=== PATIENT | female | born 1995 | race Caucasian/White ===

== ENCOUNTER 2017-11-24 20:41 | Emergency (ER) | payer OTHER, MEDICAID, SELFPAY ==
[2017-11-24 20:46] VITALS: BP 153/88; PULSE 87; RESP 20; TEMP 36.7; O2SAT 100
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
[2017-11-24] MEDS: Ondansetron O.D.T. 4 MG TABEF PO (22:00)
[2017-11-24] MEDS: Ibuprofen 600 MG TAB PO (22:01)
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
[2017-11-24 22:35] VITALS: BP 153/88; PULSE 87; RESP 20; TEMP 36.7; O2SAT 100
== END 2017-11-24 22:37 | disposition home or self-care (01) ==
PROVIDERS: Emergency Provider Nurse Practitioner Family; PCP Pediatrics
DX: G44.309 Post-traumatic headache, unspecified, not intractable (principal); R11.10 Vomiting, unspecified; Z04.1 Encounter for examination and observation following transport accident
CPT/HCPCS: 81025; 99284; 70450; 72125

== ENCOUNTER 2018-08-13 11:32 | Emergency (ER) | payer MEDICAID, SELFPAY ==
[2018-08-13 11:38] VITALS: BP 130/77; PULSE 94; RESP 18; TEMP 37.1; O2SAT 100
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
[2018-08-13] MEDS: Acetaminophen 325 MG TAB 650 MG PO (11:52)
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
== END 2018-08-13 12:26 | disposition home or self-care (01) ==
PROVIDERS: Emergency Provider Emergency Medicine
DX: S60.212A Contusion of left wrist, initial encounter (principal); Y04.0XXA Assault by unarmed brawl or fight, initial encounter; Y99.0 Civilian activity done for income or pay
CPT/HCPCS: 29125; 99283; 73110; 99282; L3908

== ENCOUNTER 2018-08-22 10:12 | Emergency (ER) | payer MEDICAID, SELFPAY ==
[2018-08-22 10:13] VITALS: BP 132/83; PULSE 102; RESP 20; TEMP 36.7; O2SAT 98
--- NOTE | 2018-08-22 10:40 | ED.GENADUL_ITS ---
Discharge Plan Disposition Patient Disposition: HOME Condition: Stable Discharge Details Chief Complaint: RespSymp Clinical Impression: Infection, respiratory tract, Asthma exacerbation Primary Care Provider: None,None ED Provider: Estuardo Moctezuma Home Meds and New Rx's Prescriptions: New doxycycline hyclate 100 mg capsule 100 mg PO BID Qty: 13 RF: 0 prednisone 50 mg tablet 50 mg PO DAILY Qty: 3 RF: 0 No Action ibuprofen [Ibuprofen IB] 200 mg Tablet 800 mg PO PRN PRNRF: 0 Discharge Instructions Instructions: Asthma (ED), Upper Respiratory Infection (ED) Additional Instructions: During illness please stay well-hydrated and get plenty of rest. It is recommended that you follow-up with primary care provider in approximately 1 to 2 weeks or sooner if needed. If you have any significant worsening of symptoms feel free to return to the emergency department for reassessment. Take antibiotic as prescribed and until fully complete. Stand Alone Forms: Work Release Referrals: [facility] [Provider Group] (Follow-up with primary care pro vider in the next 1 to 2 weeks for reassessment) Discharge Data Discharge Date/Time-TO BE ENTERED AT DEPARTURE: 08/22/18 11:38 Medical Decision Making Patient presenting to the emergency department for chief complaint of cough, cold, chest congestion. Patient states 5 days ago she had what she thought was a viral infection with nasal congestion, earache, cough. This was similar in nature to what others in the household had been experiencing. Fever resolved after couple days but over the last 24 hours she has noted significant dyspnea on exertion, wet productive cough throughout the day, chest congestion, and feeling worse. Physical exam shows rhonchi throughout all lung chowdhury, wet cough, unremarkable HEENT exam except for audible nasal congestion. There is concern for possible infectious etiology so plan to do chest x-ray for evaluation of pneumonia, give DuoNeb. Patient does state history of asthma as a child that was seasonal in nature. Review of radiological imaging shows normal chest x-ray. Patient reassessed and does have improvement of lung sounds which sound more like diffuse wheezing throughout all lung chowdhury. Patient still has cough noted on exam. Given worsening of symptoms over the past 5 days, chest tightness and discomfort plan to treat patient with doxycycline. Also given patient's history of asthma and diffuse wheezing with chest tightness plan to give albuterol inhaler along with prednisone burst. Close return precautions were discussed. Patient states that she is already in process with [facility] to establish primary care which she was informed that she should follow-up with them preferably next week if not 1 to 2 weeks. After discussion of diagnosis and plan of care patient has no further needs, questions, or concerns and states clear understanding to return to the emergency department for any worsening symptoms. HPI General Mode of arrival: ambulatory . Date/Time Provider Initiated Documentation: 08/22/18 10:13 . Limitations to Documentation: no limitations . Information obtained by: patient, family and RN notes reviewed . History of Present Illness 23 year old F presents to the emergency department with the chief complaint of Cough, chest congestion, chest pressure, described as moderate, with intensity rated at 6. Quality is described as other (pressure), and is localized to the chest. Patient started experiencing this day(s) (5) and it has been constant. No relieving factors improve symptom(s), Movement worsens symptoms (And activity) . Patient did receive the following treatments prior to arrival, none Related Data Home Medications Medication Instructions Recorded Confirmed ibuprofen [Ibuprofen IB] 800 mg PO PRN PRN 08/13/18 08/22/18 doxycycline hyclate 100 mg PO BID #13 cap 08/22/18 prednisone 50 mg PO DAILY #3 tab 08/22/18 Previous Rx's Medication Instructions Recorded doxycycline hyclate 100 mg PO BID #13 cap 08/22/18 prednisone 50 mg PO DAILY #3 tab 08/22/18 Allergies Allergy/AdvReac Type Severity Reaction Status Date / Time Sulfa (Sulfonamide Allergy Intermediate Hives Unverified 08/22/18 10:21 Antibiotics) lavender (Lavandula Allergy Mild Hives Unverified 08/22/18 10:21 angustifolia) General Stated Complaint: RespSymp GARCIA: 3 Review of Systems Constitutional Reports body ache(s), Reports chills, Reports fever(s), Denies headache(s) and Reports malaise Eyes Denies eye discharge ENT Reports as per HPI, Denies ear discharge, Reports otalgia, Denies headache(s), Reports nasal congestion, Denies neck pain, Reports sinus pressure, Denies sore throat and Denies throat swelling Cardiovascular Reports chest pain and Reports dyspnea on exertion Respiratory Reports chest congestion, Reports cough and Reports dyspnea on exertion Musculoskeletal Denies joint swelling and Denies neck pain Integumentary/Breasts Denies rash Neurologic Denies headache(s) Allergic/Immunologic Denies throat swelling [facility] Medical History Asthma Attention deficit hyperactivity disorder Bacterial urinary infection Migraine with aura Surgical History Tonsillectomy and adenoidectomy Family History Mother Urologic disease Other Diabetes Hyperlipidemia Personal history of malignant neoplasm Social History Smoking/Tobacco Use Status: Never Alcohol Intake: current Alcohol Intake frequency: a few times a month Drug use: Never Substance use type: does not use Do you feel safe at home: Yes Do you feel safe in your relationship?: Yes Exam Const General: cooperative, comfortable and no acute distress Orientation: alert and awake HENMT Head: normal to inspection, normocephalic and atraumatic Ears: hearing grossly normal bilaterally and TM's normal bilaterally General nose exam: external nose normal Face and sinus: normal facial exam, no erythema and no sinus tenderness Mouth: oral mucosae normal, no drooling, no muffled voice and no trismus Throat: posterior oropharynx normal, tonsils normal and uvula midline Neck Neck: normal visual inspection, full ROM, no lymphadenopathy, no meningeal signs, trachea midline and supple Resp Effort & Inspection: normal respiratory effort, able to speak in complete sentences and cough Quality of cough: actively coughing Auscultation: clear to auscultation bilaterally Cardio Rate: regular rate Rhythm: regular rhythm Heart Sounds: S1 normal, S2 normal, normal S1 and S2, no click, no gallops, no murmurs and no rubs Skin General skin exam: no rashes or lesions noted and dry skin (warm) Course Vital Signs Temperature 36.7 C 08/22/18 10:13 Pulse 102 H 08/22/18 10:13 Respiratory Rate 20 08/22/18 10:13 Blood Pressure 132/83 08/22/18 10:13 Pulse Oximetry 98 08/22/18 10:13 Temperature 36.7 C 08/22/18 10:13 Temperature Source Skin 08/22/18 10:13 Pulse 102 H 08/22/18 10:13 Respiratory Rate 20 08/22/18 10:13 Respiratory Effort Non-Labored 08/22/18 10:26 Respiratory Depth Normal 08/22/18 10:23 Blood Pressure 132/83 08/22/18 10:13 Blood Pressure Position Sitting 08/22/18 10:13 Pulse Oximetry 98 08/22/18 10:13 Oxygen Delivery Method Room Air 08/22/18 10:13 Oxygen Flow Rate 0 08/22/18 10:13
[2018-08-22 10:41] VITALS: PULSE 102; RESP 20; RESP 4; RESP 7; O2SAT 98
[2018-08-22] MEDS: Albuterol/Ipratropium 3 ML UPD VIAL UPD (10:41)
--- NOTE | 2018-08-22 10:53 | DI.RAD_ITS ---
SYMPTOM/DIAGNOSIS: COUGH, FEVER PA AND LATERAL CHEST: The cardiac and mediastinal contours have a normal appearance. The lungs are well inflated and clear. No infiltrate or effusion seen. IMPRESSION: Negative chest x-ray
[2018-08-22] MEDS: Inhaler, Assist Device 1 EACH MC (11:04)
[2018-08-22] MEDS: Albuterol HFA 8 GM 60 PUFF INH IH (11:05)
[2018-08-22] MEDS: predniSONE 20 MG TAB 40 MG PO (11:16)
[2018-08-22] MEDS: Doxycycline Hyclate 100 MG CAP PO (11:16)
== END 2018-08-22 11:38 | disposition home or self-care (01) ==
PROVIDERS: Emergency Provider Nurse Practitioner Family
DX: J45.901 Unspecified asthma with (acute) exacerbation (principal); J06.9 Acute upper respiratory infection, unspecified
CPT/HCPCS: 81025; 94640; 99283; 71046; J7512; J7620

== ENCOUNTER 2018-12-22 18:30 | Emergency (ER) | payer MEDICAID, SELFPAY ==
[2018-12-22 18:33] VITALS: BP 139/85; PULSE 110; RESP 22; TEMP 36.7; O2SAT 100
--- NOTE | 2018-12-22 18:39 | ED.GENADUL_ITS ---
Discharge Plan Disposition Patient Disposition: HOME Condition: Fair Discharge Details Chief Complaint: RespSymp Clinical Impression: Asthma exacerbation Primary Care Provider: None,None ED Provider: Linda Griffin Home Meds and New Rx's Prescriptions: New prednisone 20 mg tablet 40 mg PO DAILY Qty: 6 RF: 0 Continued ibuprofen [Ibuprofen IB] 200 mg Tablet 800 mg PO PRN PRNRF: 0 albuterol sulfate 90 mcg/actuation Hfa Aerosol Inhaler 2 puff INHALATION DIRECTED PRNRF: 0 Discharge Instructions Instructions: Prednisone (By mouth), Asthma (ED) Additional Instructions: Encourage hydration. Please continue with your inhaler as previously prescribed. Please take the prednisone as prescribed. You were given your dosing for today here, next dose will be tomorrow evening. If you develop fever/chills, cough, increased difficulty breathing, shortness of breath or the new/worsening symptoms please seek care urgently once again. Otherwise, please follow-up with primary care next week for reevaluation. Referrals: Cori Flannery MD [ [facility] STAFF PHYSICIAN] - Discharge Data Discharge Date/Time-TO BE ENTERED AT DEPARTURE: 12/22/18 19:25 Medical Decision Making Patient is a 23-year-old female presents today with chief complaint of asthma exacerbation. She reports that her symptoms began this afternoon after going on a cold. States that she has been having extreme dyspnea. Reports she was here 1 year ago with similar symptoms. States that since the onset of her symptoms this afternoon, her dyspnea and wheezing have persisted and increased in severity. Worse when outside, worse with exertion. She seems well aware of offending agents that can exacerbate her underlying asthma. Denies any symptoms of URI or recent infection. No recent travel. No hormone use, non-smoker, no personal or famililial history of clot Is concerned that her inhaler has been unsuccessful at alleviating her symptoms and that she has been using it more frequently than prescribed. On exam, patient appears comfortable, speaking in full sentences but slightly tachypnic. She was not noted to be wheezing by myself but nursing staff who saw her ambulate in and listen to her initially noted her to be diffusely wheezy and working to breathe. Exam is otherwise benign. Normal cardiac exam. No LE edema, negative Homans sign bilaterally. Patient was given a nebulizer and feels much improved. Lungs remain clear. Patient I discussed treatment options. She is describing quite severe symptoms, plan to treat with prednisone. History is not consistent with PE or cardiac etiology. Sounds to have been classically set off by sudden exposure to cold as her symptoms have historically. She was advised to f/u with PCP next week. SHe was given strict return precautions. All of her questions and cocnerns were addressed, she is in agreement with this plan. Given first dose here, feels improved at the time of discharge. HPI General Mode of arrival: ambulatory . Date/Time Provider Initiated Documentation: 12/22/18 18:39 . Limitations to Documentation: no limitations . Information obtained by: patient, family (friend) and RN notes reviewed . HPI Narrative: Patient is a 23-year-old female with history of asthma presenting today with chief complaint of asthma exacerbation. She reports that often her asthma is made worse when going from a warm to cold situation. She reports that she was going in and out of doors this afternoon when the symptoms suddenly came on. States that she feels like she has similarly historically with asthma exacerbation. She feels tight, has been having shortness of breath. Reports this afternoon she began having mild cough but this is after the asthma. Denies having a cough prior to asthma exacerbation. Denies any fevers or chills. De nies any recent travel. Reports that she has used her inhaler with no improvement. Related Data Home Medications Medication Instructions Recorded Confirmed ibuprofen [Ibuprofen IB] 800 mg PO PRN PRN 08/13/18 12/22/18 albuterol sulfate 2 puff INHALATION DIRECTED PRN 12/22/18 12/22/18 prednisone 40 mg PO DAILY #6 tab 12/22/18 Previous Rx's Medication Instructions Recorded prednisone 40 mg PO DAILY #6 tab 12/22/18 Allergies Allergy/AdvReac Type Severity Reaction Status Date / Time doxycycline Allergy Intermediate Hives Unverified 12/22/18 18:36 Sulfa (Sulfonamide Allergy Intermediate Hives Unverified 12/22/18 18:35 Antibiotics) lavender (Lavandula Allergy Mild Hives Unverified 12/22/18 18:35 angustifolia) General Stated Complaint: RespSymp GARCIA: 3 Review of Systems Constitutional Constitutional: Reports as per HPI, Denies chills, Denies fever(s) and Denies headache(s) Eyes Eyes: Reports as per HPI, Denies eye discharge and Denies irritation ENT Ears, Nose, Mouth, and Throat: Reports as per HPI and Denies headache(s) Cardiovascular Cardiovascular: Reports as per HPI, Denies chest pain, Denies lightheadedness, Denies radiating jaw, neck or arm pain, Denies palpitations and Reports dyspnea Respiratory Respiratory: Reports as per HPI, Denies chest congestion, Reports cough, Denies hemoptysis, Denies pain on inspiration, Denies pain with cough, Reports dyspnea and Reports wheezing Gastrointestinal Gastrointestinal: Reports as per HPI, Denies abdominal pain, Denies change in bowel habits, Denies nausea and Denies vomiting Integumentary/Breasts Skin/Breast: Reports as per HPI and Denies rash Neurologic Neurologic: Reports as per HPI and Denies headache(s) Endocrine Endocrine: Denies palpitations Allergic/Immunologic Allergic/Immunologic: Reports wheezing [facility] Medical History Asthma Dx age 14yrs rare episodes uses rescue inhaler PRN Attention deficit hyperactivity disorder Bacterial urinary infection Migraine with aura Dx age 13yrs recent validation with aura [facility] Surgical History Tonsillectomy and adenoidectomy 08/11 for sleep apnea Social History Smoking/Tobacco Use Status: Never Alcohol Intake: current Alcohol Intake frequency: a few times a month Drug use: Never Substance use type: does not use Do you feel safe at home: Yes Do you feel safe in your relationship?: Yes Exam Const General: cooperative, healthy appearing, comfortable, no acute distress, well developed and well groomed Nutritional Appearance: well nourished and overweight Orientation: alert and awake [facility] Head: normal to inspection, normocephalic and atraumatic Ears: hearing grossly normal bilaterally, external ears normal and TM's normal bilaterally General nose exam: external nose normal and nares normal Face and sinus: normal facial exam, sinuses nontender and face symmetric Mouth: oral mucosae normal, lip normal, tongue normal, oropharynx normal and moist mucous membranes Teeth and gingiva: dentition normal Throat: posterior oropharynx normal, tonsils normal and uvula midline Eyes General: appearance normal, both eyes and all related structures Neck Neck: normal visual inspection, full ROM, no lymphadenopathy and no meningeal signs Resp Effort & Inspection: normal respiratory effort, able to speak in complete sentences and no respiratory distress Auscultation: clear to auscultation bilaterally, no rales, no rhonchi and no wheezes Cardio Rate: regular rate Rhythm: regular rhythm Heart Sounds: S1 normal and S2 normal Skin General skin exam: no rashes or lesions noted Neuro General: alert and awake Cognition: normal cognition Speech: speech normal Gait: normal gait Psych Appearance: grossly normal and well kempt Mental Status: mental status grossly normal Speech and Movement: speech and movement normal Course Vital Signs Vital signs: Vital Signs Temperature 36.7 C 12/22/18 18:33 Pulse 110 H 12/22/18 18:33 Respiratory Rate 22 12/22/18 18:33 Blood Pressure 139/85 12/22/18 18:33 Pulse Oximetry 100 12/22/18 18:33 Temperature 36.7 C 12/22/18 18:33 Temperature Source Skin 12/22/18 18:33 Pulse 110 H 12/22/18 18:33 Respiratory Rate 22 12/22/18 18:33 Respiratory Effort 12/22/18 18:38 Respiratory Depth Normal 12/22/18 18:38 Blood Pressure 139/85 12/22/18 18:33 Blood Pressure Position Sitting 12/22/18 18:33 Pulse Oximetry 100 12/22/18 18:33 Oxygen Delivery Method Room Air 12/22/18 18:33 Oxygen Flow Rate 0 12/22/18 18:33 Pain Level 5 12/22/18 18:33
--- NOTE | 2018-12-22 18:56 | NUR.NOTE ---
albuterol neb tx admin as ordered. Nursing Note:
[2018-12-22 19:05] VITALS: PULSE 111; RESP 22; RESP 4; O2SAT 97
[2018-12-22] MEDS: Albuterol 2.5 MG/3 ML INH SOLN VIAL UPD (19:05)
[2018-12-22 19:17] VITALS: PULSE 92; RESP 1; RESP 18; O2SAT 98
[2018-12-22] MEDS: predniSONE 20 MG TAB 40 MG PO (19:22)
[2018-12-22 19:25] VITALS: BP 124/78; PULSE 92; RESP 17; TEMP 36.7; O2SAT 98
== END 2018-12-22 19:25 | disposition home or self-care (01) ==
PROVIDERS: Emergency Provider Physician Assistant
DX: J45.901 Unspecified asthma with (acute) exacerbation (principal)
CPT/HCPCS: 94640; 99283; J7512; J7613

== ENCOUNTER 2018-12-31 15:35 | Emergency (ER) | payer MEDICAID, SELFPAY ==
[2018-12-31 15:39] VITALS: BP 138/81; PULSE 96; RESP 18; TEMP 36.1; O2SAT 98
--- NOTE | 2018-12-31 15:54 | ED.GENADUL_ITS ---
Discharge Plan Disposition Patient Disposition: HOME Discharge Details Chief Complaint: Sorethroat Clinical Impression: Pharyngitis Primary Care Provider: None,None ED Provider: Jeffery Mayorga Home Meds and New Rx's Prescriptions: Continued ibuprofen [Ibuprofen IB] 200 mg Tablet 800 mg PO PRN PRNRF: 0 albuterol sulfate 90 mcg/actuation Hfa Aerosol Inhaler 2 puff INHALATION DIRECTED PRNRF: 0 Discharge Instructions Instructions: Pharyngitis (ED) Additional Instructions: Please drink plenty of fluid and allow for plenty of rest. Please contact your primary care physician to arrange follow-up. Return to the ER for any worsening or new concerning symptoms. Stand Alone Forms: Work Release Discharge Data Discharge Date/Time-TO BE ENTERED AT DEPARTURE: 12/31/18 17:19 Medical Decision Making <JOHN Brown - Last Filed: 01/02/19 14:38> Patient presents for 4 days of sore throat with no associated voice change or trismus. She does report associated headache and vomited x1 without associated abdominal pain. Patient denies measured fevers or chills. Exposed to someone at work recently was diagnosed with strep throat. Patient was concerned with the possibility of strep throat. Patient also reports associated fatigue does have a history of mono and this does feel somewhat similar. Patient has no associated respiratory symptoms. Patient's rapid strep testing was negative at the bedside. Full throat culture pending. Will test patient for mono. On exam patient does have very dry mucous membranes and does appear dehydrated. IV fluid ordered mono test pending <Jeffery Mayorga MD - Last Filed: 12/31/18 19:03> Patient signed out by JOHN Mueller with plan to follow-up on mono testing and CBC. Please see JOHN Mueller's documentation regarding initial ED presentation and course. Rapid strep testing was negative. [place] negative. CBC nondiagnostic. I reassessed the patient. Patient received IV fluid bolus. I offered Tylenol or ibuprofen for sore throat and she declined. Posterior oropharynx was noted to have mild erythema with no exudate or swelling. No trismus. Uvula midline. Voice normal. Suspect viral pharyngitis. Usual customary discharge instructions were provided. Patient was encouraged to follow-up with her primary care physician and return immediately should have any worsening or new concerning symptoms. HPI <JOHN Brown - Last Filed: 01/02/19 14:38> General Date/Time Provider Initiated Documentation: 12/31/18 15:45 . HPI Narrative: 23-year-old patient presents for complaints of sore throat for the last 4 days. Patient reports one episode of vomiting yesterday. Patient reports decreased appetite she has been taking fluids by mouth. She does report mild decrease in her urination. Patient reports painful swallowing worse on the right. Mild associated neck discomfort. Patient denies nasal congestion or ear pain. Denies significant cough, difficulty with shortness breath or wheezing. Patient denies abdominal pain or bowel changes. 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 Patient is concerned for similar. She also does have a history of mono. Patient does report that yesterday she was so fatigued that she fell asleep at 2:00 in the afternoon for approximately 3 hours which is very atypical for her. Patient does report the somewhat reminds her of when she had mono in the past. Denies voice change or trismus Related Data Home Medications Medication Instructions Recorded Confirmed ibuprofen [Ibuprofen IB] 800 mg PO PRN PRN 08/13/18 12/31/18 albuterol sulfate 2 puff INHALATION DIRECTED PRN 12/22/18 12/31/18 Allergies Allergy/AdvReac Type Severity Reaction Status Date / Time doxycycline Allergy Intermediate Hives Unverified 12/31/18 15:41 Sulfa (Sulfonamide Allergy Intermediate Hives Unverified 12/31/18 15:41 Antibiotics) lavender (Lavandula Allergy Mild Hives Unverified 12/31/18 15:41 angustifolia) General Stated Complaint: Sorethroat GARCIA: 4 Review of Systems <JOHN Brown - Last Filed: 01/02/19 14:38> All systems reviewed & are unremarkable except as noted in HPI and below Constitutional Constitutional: Denies chills, Reports fatigue, Denies fever(s) and Reports headache(s) ENT Ears, Nose, Mouth, and Throat: Denies otalgia, Reports headache(s), Denies nasal congestion, Denies sinus pain, Denies sinus pressure, Reports sore throat and Denies throat swelling Respiratory Respiratory: Reports cough Neurologic Neurologic: Reports headache(s) Endocrine Endocrine: Reports fatigue Allergic/Immunologic Allergic/Immunologic: Denies throat swelling PFSH <JOHN Brown - Last Filed: 01/02/19 14:38> Medical History Asthma Dx age 14yrs rare episodes uses rescue inhaler PRN Attention deficit hyperactivity disorder Bacterial urinary infection Migraine with aura Dx age 13yrs recent [place] with [place] [facility] History Tonsillectomy and adenoidectomy 08/11 for sleep apnea Social History Smoking/Tobacco Use Status: Never Alcohol Intake: current Alcohol Intake frequency: a few times a month Drug use: Never Substance use type: does not use Do you feel safe at home: Yes Do you feel safe in your relationship?: Yes Exam <JOHN Brown - Last Filed: 01/02/19 14:38> Narrative Exam Narrative: CONST: Healthy appearing patient, in no acute distress. Well hydrated. Alert and alert. HENMT: Head nomocephalic, normal to inspection. Atraumatic. Hearing grossly normal. TM appearance is normal bilaterally. No erythema or bulging. Patient with pharyngeal erythema without exudates or tonsillar swelling. Uvula is midline without edema or bogginess EYES: General normal appearance. Alignment normal. Eyelids normal. Conjunctiva normal. NECK: Normal visual inspection. FROM. Trachea midline. No Midline tenderness. Cervical lymphadenopathy present posteriorly CHEST: Normal insepection of the chest. RESP: Normal respiratory effort. Speaking full sentences. No cough. No audible wheezing. No retractions. Breath sounds full and equal bilaterally. No associated rhonchi, rales or wheezing CARDIO: No JVD. Regular rate and rhythm, no murmurs rubs or gallops Course <JOHN Brown - Last Filed: 01/02/19 14:38> Vital Signs Vital signs: Vital Signs Temperature 36.1 C L 12/31/18 15:39 Pulse 96 H 12/31/18 15:39 Respiratory Rate 18 12/31/18 15:39 Blood Pressure 138/81 12/31/18 15:39 Pulse Oximetry 98 12/31/18 15:39 Temperature 36.1 C L 12/31/18 15:39 Temperature Source Temporal Artery Scan 12/31/18 15:39 Pulse 96 H 12/31/18 15:39 Respiratory Rate 18 12/31/18 15:39 Respiratory Effort Non-Labored 12/31/18 15:39 Blood Pressure 138/81 12/31/18 15:39 Pulse Oximetry 98 12/31/18 15:39 Oxygen Delivery Method Room Air 12/31/18 15:39 Oxygen Flow Rate 0 12/31/18 15:39 Pain Level 5 12/31/18 15:39 Lab/Test Results Lab/Test Results: POC Strep Test-ROSY(Rapid) Start: 12/31/18 15:50 Freq: .Rapid Strep Test Status: Active Protocol: Document 12/31/18 15:50 AM (Rec: 12/31/18 15:50 AM [id number]) Strep test-ROSY(Rapid)-POC POC-Strep test-ROSY (Rapid) Negative POC-Strep test-ROSY (Rapid) Negative Sign Out <JOHN Brown - Last Filed: 01/02/19 14:38> Sign Out Data: Sign Out Comment: Pending rehydration with IV fluid and mono testing. Last updated by Jaleesa Mueller PA at 12/31/18 16:22
[2018-12-31] MEDS: Normal Saline 1,000 ML 1000 ML IV (16:05)
[2018-12-31 16:29] LABS: Abs Immature Grans 0.04 k/cumm (0.0-0.09); Absolute Basophil Count 0.01 k/cumm (0.0-0.2); Absolute Eosinophil Count 0.04 k/cumm (0.0-0.7); Absolute Lymphocyte Count 2.73 k/cumm (1.2-3.4); Absolute Monocyte Count 0.72 k/cumm (0.11-0.7); Absolute Neutrophil Count 7.08 k/cumm (1.2-6.7); Basophils % 0.1; Eosinophils % 0.4; HCT 41.5 % (36.0-46.0); HGB 13.1 g/dL (12.0-15.5); Immature Grans % 0.4; Lymphocytes % 25.7; Mean Corp. HGB Concentration 31.6 g/dL (32.0-36.0); Mean Corpuscular Hemoglobin 26.9 pg (27.0-33.0); Mean Corpuscular Volume 85.2 fL (80-95); Mean Platelet Volume 10.4 fL (8.0-11.0); Monocytes % 6.8; Neutrophils % 66.6; Platelet Count 361 x1000/uL (130-400); RBC 4.87 m/cumm (4.00-5.20); RBC Distribution Width 13.7 % (11.7-14.6); White Blood Cell Count 10.62 k/cumm (4.4-10.8)
[2018-12-31 16:35] LABS: Mono Screening Negative (Negative)
== END 2018-12-31 17:19 | disposition home or self-care (01) ==
PROVIDERS: Physician Assistant; Emergency Provider Student in an Organized Health Care Education/Training Program
DX: J02.9 Acute pharyngitis, unspecified (principal); R51 Headache; R11.10 Vomiting, unspecified
CPT/HCPCS: 96360; 99283; 85025; 86308

== ENCOUNTER 2019-07-25 14:25 | Emergency (ER) | payer SELFPAY ==
[2019-07-25 14:32] VITALS: BP 140/87; PULSE 115; RESP 20; TEMP 37.6; O2SAT 100
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
[2019-07-25] MEDS: Acetaminophen 500 MG TAB 1000 MG PO (15:15)
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
[2019-07-25 15:43] VITALS: BP 144/78; PULSE 100; RESP 17; O2SAT 97
[2019-07-25 16:08] VITALS: PULSE 110; O2SAT 99
[2019-07-25 16:22] VITALS: BP 141/97; PULSE 102; RESP 18; TEMP 37.1; O2SAT 97
== END 2019-07-25 16:32 | disposition home or self-care (01) ==
PROVIDERS: Emergency Provider Physician Assistant
DX: S00.81XA Abrasion of other part of head, initial encounter (principal); S09.90XA Unspecified injury of head, initial encounter; S20.219A Contusion of unspecified front wall of thorax, initial encounter; V47.5XXA Car driver injured in collision with fixed or stationary object in traffic accident, initial encounter
CPT/HCPCS: 81025; 99284; 70450; 70486; 71046; 72125

== ENCOUNTER 2020-11-18 15:03 | Outpatient (REF) | payer SELFPAY ==
[2020-11-20 19:54] LABS: COVID-19 RT-PCR UVMMC Result Negative (Negative)
== END 2020-11-18 15:04 | disposition home or self-care (01) ==
LOC: LBN 15:03
PROVIDERS: Visit Provider Nurse Practitioner Family
DX: Z20.822 Contact with and (suspected) exposure to COVID-19 (principal); J06.9 Acute upper respiratory infection, unspecified
CPT/HCPCS: U0003

== ENCOUNTER 2021-05-13 20:04 | Emergency (ER) | payer BC, SELFPAY ==
--- NOTE | 2021-05-13 20:00 | RT.EKG_ITS ---
APPROVED REPORT Exam: Resting ECG Reason for Exam: Seizure versus syncope Patient Location: E HR:72 bpm ECG Measurements Heart Rate [address] 158 P 16 QRSd 89 QRS 43 QT 410 T 20 QTc 449 Conclusion Sinus rhythm...normal P axis, V-rate 60- 99 sinus rhythm, normal axis, normal intervals, non ischemic; no evidence of WPW, Brugada, prolonged QT or HOCM
[2021-05-13 20:07] VITALS: BP 154/92; PULSE 108; PULSE 110; RESP 18; TEMP 36.6; O2SAT 100
[2021-05-13 20:11] VITALS: RESP 18
--- NOTE | 2021-05-13 20:30 | DI.CT_ITS ---
Exam(s) CT HEAD WO EXAM: CT HEAD WO CLINICAL HISTORY: Seizure versus syncope. TECHNIQUE: Imaging Protocol: Axial computed tomography images with coronal and sagittal reformatted images were created and reviewed COMPARISON: CT CT HEAD CERV SPINE FACIAL WO from 07/25/2019 FINDINGS: The ventricular system is normal in appearance. No evidence of acute intracranial hemorrhage, mass effect, or midline shift. The orbital structures are unremarkable. The temporal bone structures appear intact. Calvarium: Normal. Visualized Paranasal sinuses/Mastoids: Clear. IMPRESSION: Normal cranial CT. RADIATION DOSE DELIVERED: 745.91mGy.cm Total DLP 745.91mGy.cm Total DLP !Error CTDIvol DATA REPOSITORY: All CT scans at this facility are submitted to the National Radiology Data Registry (NRDR) Dose Index Registry (DIR) with the [employer] ([employer]). RADIATION OPTIMIZATION: All CT scans at this facility use at least one of these dose optimization te chniques: automated exposure control; mA and/or kV adjustment per patient size (includes targeted exa ms where dose is matched to clinical indication); or iterative reconstruction.
--- NOTE | 2021-05-13 20:31 | DI.RAD_ITS ---
Exam(s) XR CHEST 2V PA LATERAL EXAM: XR CHEST 2V PA LATERAL CLINICAL HISTORY: Seizure versus syncope TECHNIQUE: 2D digital imaging was performed. COMPARISON: CR XR CHEST 2V PA LATERAL from 07/25/2019 FINDINGS: The heart is not enlarged. The lungs are clear and well expanded. No pleural effusion seen. Mediastin al contours appear intact. IMPRESSION: Normal chest. RADIATION DOSE DELIVERED: Total DLP
[2021-05-13] MEDS: Normal Saline 1,000 ML 1000 ML IV (20:48)
[2021-05-13 20:53] LABS: Abs Immature Grans 0.03 10^3/uL (0.0-0.06); Absolute Basophil Count 0.02 10^3/uL (0.0-0.2); Absolute Eosinophil Count 0.02 10^3/uL (0.0-0.7); Absolute Lymphocyte Count 2.77 10^3/uL (1.2-3.4); Basophils % 0.2; Eosinophils % 0.2; HCT 41.4 % (36.0-46.0); HGB 13.1 g/dL (11.2-15.7); Immature Grans % 0.2; Lymphocytes % 22.6; MCH 27.6 pg (27.0-33.0); MCHC 31.6 % (32.0-36.0); MCV 87.2 fL (80-95); MPV 10.9 fL (8.0-11.0); Monocytes % 5.7; Neutrophils % 71.1; Nucleated RBC 0 %; Platelet Count 404 10^3/uL (130-400); RBC 4.75 10^6/uL (3.93-5.22); RDW 12.9 % (11.7-14.6); WBC 12.24 10^3/uL (4.4-10.8)
--- NOTE | 2021-05-13 20:56 | W.ED.GENAD ---
Discharge Plan Disposition Patient Disposition: HOME Condition: Improving Discharge Details Clinical Impression: Syncope, Seizure-like activity, Migraine Primary Care Provider: None,None ED Provider: Lincoln Espinoza Home Meds and New Rx's Prescriptions: Continued ibuprofen [Ibuprofen IB] 200 mg Tablet 800 mg PO PRN PRN0RF Rx Instructions: for migraines - frequent migraines recently albuterol sulfate 90 mcg/actuation Hfa Aerosol Inhaler 2 puff INHALATION DIRECTED PRN0RF Discharge Instructions Instructions: General Headache (ED), Syncope (ED), New-Onset Seizure in Adults (ED) Additional Instructions: During your ER visit this evening there was no obvious emergent process identified. It is unclear as to what exactly caused your syncopal episode whether this could be related to your complex migraine or if this was actually seizure activity. I personally spoke with Dr. Urrutia, neurology, at [facility]. She recommends outpatient neurology follow-up, additional testing and work-up to determine the etiology of your symptoms. I have placed you on the care management list to help expedite outpatient neurology follow-up whether that be through our facility or [facility]. Please watch for new or worsening symptoms and return to the ER for any concerns. As we discussed, I recommend that you do not drive a car, operate machinery, or put yourself at higher risk for injury if you were to have a repeat seizure, until you have been evaluated and cleared to return to normal activity by neurology. Referrals: Lindsay Santoyo MD [ [facility] STAFF PHYSICIAN] - Medical Decision Making This is a 25-year-old female who reports a history of complex-atypical migraines, in the need of neurology follow-up, family history of seizure-like activity, presenting to the ER this evening for concern that she may have had a seizure. Clinically she appears well, nontoxic, neurologically intact. Patient reports that she did have a which she would describe as a normal earlier today, took Tylenol and otherwise felt well. Difficult to determine whether this could have been seizure-like activity versus potential syncopal episode secondary to a multitude of etiologies. Plan is to obtain IV access, give IV fluids, obtain cardiac work-up and a CT of her brain. Patient denies any chest pain, shortness of breath, pain or swelling her legs. Based upon her presentation extremely low suspicion for ACS, PE, etc. Laboratory values reveal mild nonspecific leukocytosis of 12.24. Potassium 3.3, electrolytes and chemistries otherwise unremarkable. Troponin is less than 50. TSH 1.59. Urinalysis reveals no indication of infection. Tox screen is negative. Alcohol is less than 3. CT imaging of her brain as well as a chest x-ray were both read unremarkable per radiology. Upon reevaluation patient is resting comfortably, using her cell phone without difficulty. Heart rate in the 70s, she remains afebrile, O2 sat 100% on room air, blood pressure 122/73. It is still unclear as to what exactly prompted her episode this evening. Given the overall vagueness of her presentation, symptoms, past medical history as well as the history of her family, I have pushed the CT imaging to [facility] and requested a neurology consultation. I was able to speak with Dr. Urrutia, neurology, who felt as though the patient's work-up in the ER this evening was reassuring and that she could be discharged from our ER without initiating any medications. She recommends outpatient neurology work-up to determine etiology of her symptoms and if medication is indicated. This conversation was then relayed with the patient. Patient has no additional questions or concerns and would be happy to follow-up with neurology as an outpatient. We discussed that at this time only a single troponin has been drawn and I did explain to her the limitations of a single troponin versus observation and obtaining a delta troponin. Patient understands this and would prefer to be discharged. Strict discharge and return precautions were provided. I have placed her on our care management list to help expedite outpatient neurology follow-up whether that is local here at our facility with Dr. Santoyo or through [facility]. I will give the patient the information for Dr. Santoyo as well. Upon discharge patient reports feeling well, at baseline, and she remains neurologically intact. This documentation was generated using [employer] dictation system, please disregard any oddities of phrase or misspellings. Medical Records Medical records reviewed: Yes I reviewed the patient's medical records. Imaging Data Radiologic Study: Attestation: I personally reviewed and interpreted this imaging study as follows: Imaging: CT Scan Radiologist's impression: PROCEDURE INFORMATION: Exam: CT Head Without Contrast Exam date and time: 05/13/2021 20:34 Age: 25 years old Clinical indication: Other: Seizure vs syncope TECHNIQUE: Imaging protocol: Computed tomography of the head without contrast. COMPARISON: CT HEAD CERV SPINE FACIAL WO 07/25/2019 15:22 FINDINGS: Brain: No edema or hemorrhage. Cerebral ventricles: No ventriculomegaly. Paranasal sinuses: No acute sinusitis. Mastoid air cells: No mastoid effusion. Bones/joints: No acute fracture. Soft tissues: No suspicious lesions. IMPRESSION: No acute intracranial findings. Radiologic Study #2: Attestation: I personally reviewed and interpreted this imaging study as follows: Imaging: X-Ray Radiologist's impression: PROCEDURE INFORMATION: Exam: XR Chest Exam date and time: 05/13/2021 21:32 Age: 25 years old Clinical indication: Other: Seizure vs syncope TECHNIQUE: Imaging protocol: XR of the chest. Views: 2 views. COMPARISON: CR XR CHEST 2V PA LATERAL 07/25/2019 15:28 FINDINGS: Lungs: No consolidation. Pleural spaces: No pleural effusion. No pneumothorax. Heart/Mediastinum: No cardiomegaly. Bones/joints: No acute fracture. IMPRESSION: No acute cardiopulmonary pathology. Lab Data Lab results reviewed: Yes I reviewed the patient's lab results. Labs: Laboratory Tests Range/Units 05/13/21 05/13/21 05/13/21 20:45 20:45 20:45 WBC (4.4-10.8) 10^3/uL 12.24 H RBC (3.93-5.22) 10^6/uL 4.75 Hgb (11.2-15.7) g/dL 13.1 Hct (36.0-46.0) % 41.4 MCV (80-95) fL 87.2 MCH (27.0-33.0) pg 27.6 MCHC (32.0-36.0) % 31.6 L RDW (11.7-14.6) % 12.9 Plt Count (130-400) 10^3/uL 404 H MPV (8.0-11.0) fL 10.9 Immature Gran % 0.2 Neutrophils % 71.1 Lymphocytes % 22.6 Monocytes % 5.7 Eosinophils % 0.2 Basophils % 0.2 Nucleated RBC % % 0 Absolute Neutrophils (1.2-6.7) 10^3/uL 8.70 H Absolute Lymphocytes (1.2-3.4) 10^3/uL 2.77 Absolute Monocytes (0.1-0.8) 10^3/uL 0.70 Absolute Eosinophils (0.0-0.7) 10^3/uL 0.02 Absolute Basophils (0.0-0.2) 10^3/uL 0.02 Sodium (136-145) mmol/L 143 Potassium (3.5-5.1) mmol/L 3.3 L Chloride (98-107) mmol/L 105 Carbon Dioxide (21.0-32.0) mmol/L 28.9 Anion Gap (3-11) mmol/L 9.1 BUN (7-18) mg/dL 12 Creatinine (0.55-1.02) mg/dL 0.9 Estimated GFR/1.73 m2 (mL/min/1.73m2) >= 60.00 Glucose (74-106) mg/dL 90 Calcium (8.5-10.1) mg/dL 9.4 Magnesium (1.8-2.4) mg/dL 2.4 Total Bilirubin (0.2-1.0) mg/dL 0.4 AST (15-37) U/L 15 ALT (14-59) U/L 20 Alkaline Phosphatase (46-116) U/L 105 Troponin I (<or=60) ng/L < 50 Total Protein (6.4-8.2) g/dL 8.4 H Albumin (3.4-5.0) g/dL 4.4 Lipase (73-393) U/L 35 TSH (0.36-3.74) uIU/mL 1.59 Urine Color (Yellow) Urine Clarity (Clear) Urine pH (5-8) Ur Specific [place] (1.005-1.025) Urine Protein (Negative) mg/dL Urine Ketones (Negative) mg/dL Urine Blood (Negative) Urine Nitrite (Negative) Urine Bilirubin (Negative) Urine Urobilinogen (Up TO 0.2) EU/dL Ur Leukocyte Esterase (Negative) Urine RBC (0-2) HPF Urine WBC (0-5) HPF Ur Epithelial Cells (Negative) HPF Urine Crystals (Negative) HPF Urine Bacteria (Negative) HPF Urine Casts (Negative) LPF Urine Mucus (Negative) Ur Culture Indicated? Urine Glucose (Negative) mg/dL Urine Opiates Screen (Negative) Negative Urine Methadone Screen (Negative) Negative Ur Barbiturates Screen (Negative) Negative Ur Tricyclics Screen (Negative) Negative Ur Amphetamines Screen (Negative) Negative U Benzodiazepines Scrn (Negative) Negative Urine Cocaine Screen (Negative) Negative Ur THC Screen (Negative) Negative Ethyl Alcohol (<10) mg/dL < 3.0 Range/Units 05/13/21 20:45 WBC (4.4-10.8) 10^3/uL RBC (3.93-5.22) 10^6/uL Hgb (11.2-15.7) g/dL Hct (36.0-46.0) % MCV (80-95) fL MCH (27.0-33.0) pg MCHC (32.0-36.0) % RDW (11.7-14.6) % Plt Count (130-400) 10^3/uL MPV (8.0-11.0) fL Immature Gran % Neutrophils % Lymphocytes % Monocytes % Eosinophils % Basophils % Nucleated RBC % % Absolute Neutrophils (1.2-6.7) 10^3/uL Absolute Lymphocytes (1.2-3.4) 10^3/uL Absolute Monocytes (0.1-0.8) 10^3/uL Absolute Eosinophils (0.0-0.7) 10^3/uL Absolute Basophils (0.0-0.2) 10^3/uL Sodium (136-145) mmol/L Potassium (3.5-5.1) mmol/L Chloride (98-107) mmol/L Carbon Dioxide (21.0-32.0) mmol/L Anion Gap (3-11) mmol/L BUN (7-18) mg/dL Creatinine (0.55-1.02) mg/dL Estimated GFR/1.73 m2 (mL/min/1.73m2) Glucose (74-106) mg/dL Calcium (8.5-10.1) mg/dL Magnesium (1.8-2.4) mg/dL Total Bilirubin (0.2-1.0) mg/dL AST (15-37) U/L ALT (14-59) U/L Alkaline Phosphatase (46-116) U/L Troponin I (<or=60) ng/L Total Protein (6.4-8.2) g/dL Albumin (3.4-5.0) g/dL Lipase (73-393) U/L TSH (0.36-3.74) uIU/mL Urine Color (Yellow) Yellow Urine Clarity (Clear) Clear Urine pH (5-8) 6.0 Ur Specific [place] (1.005-1.025) 1.020 Urine Protein (Negative) mg/dL Negative Urine Ketones (Negative) mg/dL Negative Urine Blood (Negative) Trace-intact H Urine Nitrite (Negative) Negative Urine Bilirubin (Negative) Negative Urine Urobilinogen (Up TO 0.2) EU/dL 1.0 H Ur Leukocyte Esterase (Negative) Negative Urine RBC (0-2) HPF 0-2 Urine WBC (0-5) HPF 0-2 Ur Epithelial Cells (Negative) HPF Rare Urine Crystals (Negative) HPF Negative Urine Bacteria (Negative) HPF Rare Urine Casts (Negative) LPF Negative Urine Mucus (Negative) Negative Ur Culture Indicated? No Urine Glucose (Negative) mg/dL Negative Urine Opiates Screen (Negative) Urine Methadone Screen (Negative) Ur Barbiturates Screen (Negative) Ur Tricyclics Screen (Negative) Ur Amphetamines Screen (Negative) U Benzodiazepines Scrn (Negative) Urine Cocaine Screen (Negative) Ur THC Screen (Negative) Ethyl Alcohol (<10) mg/dL ECG Data Attestation: I personally reviewed and interpreted this ECG (s) as follows: Interpretation: Please see official report by Dr. Tucker, sinus rhythm, ventricular rate of 72, no STEMI HPI General Mode of arrival: ambulatory. Date/Time Provider Initiated Documentation: 05/13/21 20:07. Limitations to Documentation: no limitations. Information obtained by: patient. HPI Narrative: This is a 25-year-old female, reports past medical history that includes atypical complex migraines, presenting to the ER for concern that she may have had a seizure. Patient states that she had what she would describe as one of her typical migraines today, took Tylenol this morning and it responded well. Overall throughout the day she felt normal but then states around 730 this evening she felt tingly all over, and then has no recollection for the next 10 minutes or so. States that she must have fallen to the ground but denies any injury. Her roommate and her fianc? were both home and they state that she was lying on the ground and was not responding and reported body wide seizure-like activity. Patient denies biting her tongue or any urinary incontinence. Patient states that she has never had a seizure before. She tells me that both of her younger sisters have seizures. One has what she described as silent seizures, when half of her body goes numb and she just needs to go rest and be away from everyone. Her other sister has seizures that are environmentally induced. Patient tells me that based upon her atypical and complex migraines she was told that she should see a neurologist but has never made the appointment because her most recent job is new and she just got insurance. She denies recent illness or trauma, current headache, fever, neck pain, visual change, chest pain, shortness of breath, focal weakness, numbness, tingling, abdominal pain, nausea, vomiting, bowel or bladder changes. Related Data Home Medications Medication Instructions Recorded Confirmed ibuprofen 200 mg tablet (Ibuprofen 800 mg PO PRN PRN 08/13/18 05/13/21 IB) albuterol sulfate 90 mcg/actuation 2 puff INHALATION DIRECTED PRN 12/22/18 05/13/21 aerosol inhaler Allergies Allergy/AdvReac Type Severity Reaction Status Date / Time doxycycline Allergy Intermediate Hives Unverified 05/13/21 20:13 Sulfa (Sulfonamide Allergy Intermediate Hives Unverified 05/13/21 20:13 Antibiotics) lavender (Lavandula Allergy Mild Hives Unverified 05/13/21 20:13 angustifolia) General Stated Complaint: Dizzy/Sync GARCIA: 3 Review of Systems Constitutional Constitutional: Denies fatigue, Denies fever(s), Reports headache(s) and Denies weakness Eyes Eyes: Denies change in vision ENT Ears, Nose, Mouth, and Throat: Reports headache(s) and Denies neck pain Cardiovascular Cardiovascular: Denies chest pain and Denies dyspnea Respiratory Respiratory: Denies cough and Denies dyspnea Gastrointestinal Gastrointestinal: Denies abdominal pain, Denies nausea and Denies vomiting Musculoskeletal Musculoskeletal: Denies back pain, Denies neck pain and Denies tingling Integumentary/Breasts Skin/Breast: Denies rash Neurologic Neurologic: Reports headache(s), Denies tingling and Denies weakness Endocrine Endocrine: Denies fatigue Hematologic/Lymphatic Hematologic/Lymphatic: Denies easy bleeding and Denies easy bruising PFSH All Active Problems (Updated 05/13/21 @ 22:38 by JOHN Angelo) Syncope (Chronic) Seizure-like activity (Acute) Migraine (Chronic) Medical History (Updated 05/13/21 @ 22:38 by JOHN Angelo) Asthma Dx age 14yrs rare episodes uses rescue inhaler PRN Attention deficit hyperactivity disorder Bacterial urinary infection Migraine with aura Dx age 13yrs recent validation with aura [facility] Surgical History Tonsillectomy and adenoidectomy 08/11 for sleep apnea Family History Mother Urologic disease Other Diabetes Hyperlipidemia Personal history of malignant neoplasm Social History Smoking/Tobacco Use Status: Never Smoking risk assessment performed?: Yes Alcohol Intake: current Alcohol Intake frequency: a few times a month Drug use: Never Substance use type: does not use Do you feel safe at home: Yes Do you feel safe in your relationship?: Yes Exam Const General: cooperative, healthy appearing, comfortable and no acute distress Orientation: alert, awake and oriented x3 HENMT Head: normal to inspection, normocephalic and atraumatic Face and sinus: normal facial exam Mouth: moist mucous membranes Eyes General: appearance normal, both eyes and all related structures Alignment and Position: alignment normal Periorbital: periorbital findings normal Eyelids: eyelids normal Conjunctivae: conjunctivae normal Sclera: sclerae normal Cornea: corneas normal Pupils: PERRL EOM: EOM intact bilaterally Direct ophthalmoscopy: normal light reflex Neck Neck: normal visual inspection, full ROM, no meningeal signs, trachea midline, supple and nontender Resp Effort & Inspection: normal respiratory effort and able to speak in complete sentences Auscultation: clear to auscultation bilaterally Cardio Rate: regular rate Rhythm: regular rhythm GI Palpation: soft and nontender Back/Spine/Pelvis Back: No back tenderness Skin General skin exam: no rashes or lesions noted Neuro General: patient alert, patient awake, patient oriented x3, moves all extremities and no focal motor deficits Cranial Nerves: CN's II-XI intact bilaterally Cognition: normal cognition Speech: speech normal Gait: normal gait Motor: muscle tone normal throughout, strength 5/5 throughout, no pronator drift, no movement abnormalities noted and no fasciculations Sensory Exam: no sensory deficits noted Extrem General: normal to inspection, full ROM and capillary refill normal Psych Appearance: grossly normal Mental Status: mental status grossly normal Course Vital Signs Vital signs: Vital Signs Temperature 36.6 C 05/13/21 20:07 Pulse 108 H 05/13/21 20:07 Respiratory Rate 18 05/13/21 20:07 Blood Pressure 154/92 H 05/13/21 20:07 Pulse Oximetry 100 05/13/21 20:07 Temperature 36.6 C 05/13/21 20:07 Temperature Source Skin 05/13/21 20:07 Pulse 108 H 05/13/21 20:07 Respiratory Rate 18 05/13/21 20:11 Respiratory Effort 05/13/21 20:11 Respiratory Depth Normal 05/13/21 20:11 Respiratory Pattern Normal 05/13/21 20:11 Blood Pressure 154/92 H 05/13/21 20:07 Blood Pressure Position Sitting 05/13/21 20:07 Pulse Oximetry 100 05/13/21 20:07 Oxygen Delivery Method Room Air 05/13/21 20:07 Oxygen Flow Rate 0 05/13/21 20:07 Pain Level 0 05/13/21 20:07 Lab/Test Results Lab/Test Results: Laboratory Tests Range/Units 05/13/21 20:45 WBC (4.4-10.8) 10^3/uL 12.24 H RBC (3.93-5.22) 10^6/uL 4.75 Hgb (11.2-15.7) g/dL 13.1 Hct (36.0-46.0) % 41.4 MCV (80-95) fL 87.2 MCH (27.0-33.0) pg 27.6 MCHC (32.0-36.0) % 31.6 L RDW (11.7-14.6) % 12.9 Plt Count (130-400) 10^3/uL 404 H MPV (8.0-11.0) fL 10.9 Immature Gran % 0.2 Neutrophils % 71.1 Lymphocytes % 22.6 Monocytes % 5.7 Eosinophils % 0.2 Basophils % 0.2 Nucleated RBC % % 0 Absolute Neutrophils (1.2-6.7) 10^3/uL 8.70 H Absolute Lymphocytes (1.2-3.4) 10^3/uL 2.77 Absolute Monocytes (0.1-0.8) 10^3/uL 0.70 Absolute Eosinophils (0.0-0.7) 10^3/uL 0.02 Absolute Basophils (0.0-0.2) 10^3/uL 0.02 POC- Test(urine) Negative
[2021-05-13 21:19] LABS: ALT 20 U/L (14-59); AST 15 U/L (15-37); Albumin 4.4 g/dL (3.4-5.0); Alkaline Phosphatase 105 U/L (46-116); Anion Gap 9.1 mmol/L (3-11); BUN 12 mg/dL (7-18); Bilirubin, Total 0.4 mg/dL (0.2-1.0); CO2 28.9 mmol/L (21.0-32.0); CREATININE 0.9 mg/dL (0.55-1.02); Calcium 9.4 mg/dL (8.5-10.1); Chloride 105 mmol/L (98-107); Glucose 90 mg/dL (74-106); Lipase 35 U/L (73-393); Magnesium 2.4 mg/dL (1.8-2.4); Potassium 3.3 mmol/L (3.5-5.1); Sodium 143 mmol/L (136-145); TSH (W/Ref FT4) 1.59 uIU/mL (0.36-3.74); Total Protein 8.4 g/dL (6.4-8.2); Troponin I < 50 ng/L (<or=60)
[2021-05-13 21:23] LABS: ETHANOL BLOOD < 3.0 mg/dL (<10)
[2021-05-13 21:45] LABS: Bilirubin Negative (Negative); Blood Trace-intact (Negative); Clarity Clear (Clear); Glucose Negative (Negative); Ketones Negative (Negative); Leukocyte Esterase Negative (Negative); Nitrite Negative (Negative)
[2021-05-13 21:55] LABS: *AMPHETAMINES SCREEN URINE Negative (Negative); *BARBITURATES SCREEN URINE Negative (Negative); *BENZODIAZEPINES SCREEN URINE Negative (Negative); Bacteria Rare HPF (Negative); C & S Indicated? No; Cannabinoids THC Negative (Negative); Casts Negative LPF (Negative); Cocaine Screen,Urine Negative (Negative); Crystals Negative HPF (Negative); Epithelial Cells Rare HPF (Negative); METHADONE URINE SCREEN Negative (Negative); Mucus Negative (Negative); OPIATES URINE SCREEN Negative (Negative); RBC 0-2 HPF (0-2); WBC 0-2 HPF (0-5)
[2021-05-13 21:57] LABS: Tricyclic Antidepressants Negative (Negative)
--- NOTE | 2021-05-13 22:02 | DI.VRAD_ITS ---
PROCEDURE INFORMATION: Exam: XR Chest Exam date and time: 05/13/2021 21:32 Age: 25 years old Clinical indication: Other: Seizure vs syncope TECHNIQUE: Imaging protocol: XR of the chest. Views: 2 views. COMPARISON: CR XR CHEST 2V PA LATERAL 07/25/2019 15:28 FINDINGS: Lungs: No consolidation. Pleural spaces: No pleural effusion. No pneumothorax. Heart/Mediastinum: No cardiomegaly. Bones/joints: No acute fracture. IMPRESSION: No acute cardiopulmonary pathology. Dictated and Authenticated by: Marialuisa Jones MD. Ordering:LEN Stark MD
--- NOTE | 2021-05-13 22:02 | DI.VRAD_ITS ---
PROCEDURE INFORMATION: Exam: CT Head Without Contrast Exam date and time: 05/13/2021 20:34 Age: 25 years old Clinical indication: Other: Seizure vs syncope TECHNIQUE: Imaging protocol: Computed tomography of the head without contrast. COMPARISON: CT HEAD CERV SPINE FACIAL WO 07/25/2019 15:22 FINDINGS: Brain: No edema or hemorrhage. Cerebral ventricles: No ventriculomegaly. Paranasal sinuses: No acute sinusitis. Mastoid air cells: No mastoid effusion. Bones/joints: No acute fracture. Soft tissues: No suspicious lesions. IMPRESSION: No acute intracranial findings. Dictated and Authenticated by: Marialuisa Jones MD. Ordering:LEN Stark MD
[2021-05-13 22:11] VITALS: O2SAT 99
[2021-05-13 22:14] VITALS: BP 122/73; PULSE 70; RESP 18; O2SAT 100
== END 2021-05-13 22:54 | disposition home or self-care (01) ==
PROVIDERS: Emergency Provider Physician Assistant
DX: R55 Syncope and collapse (principal); R56.9 Unspecified convulsions; G43.909 Migraine, unspecified, not intractable, without status migrainosus
CPT/HCPCS: 36415; 80053; 80307; 81025; 83690; 93005; 96360; 99285; 70450; 71046; 80320; 81003; 81015; 83735; 84443; 84484; 85025; 93010; 99284

== ENCOUNTER 2021-08-12 03:53 | Outpatient (CLI) | payer BC, SELFPAY | END 2021-08-12 03:54 | disposition home or self-care (01) | LOC: LBO 03:53 | PROVIDERS: Visit Provider Obstetrics & Gynecology Gynecology ==

== ENCOUNTER 2021-09-02 01:47 | Outpatient (CLI) | payer BC, SELFPAY | END 2021-09-02 01:48 | disposition home or self-care (01) | LOC: LBO 01:47 | PROVIDERS: Visit Provider Advanced Practice Midwife ==

== ENCOUNTER 2021-12-07 18:42 | Emergency (ER) | payer MEDICAID, SELFPAY ==
[2021-12-07 18:51] VITALS: BP 143/85; PULSE 116; RESP 22; TEMP 36.6; O2SAT 99
--- NOTE | 2021-12-07 19:11 | W.ED.GENAD ---
Discharge Plan Disposition Patient Disposition: HOME Condition: Stable Discharge Details Clinical Impression: Abdominal pain during Primary Care Provider: Karin Montelongo ED Provider: Madison Mccurdy Discharge Instructions Instructions: Abdominal Pain in (ED) Additional Instructions: At this time you do not have a urinary tract infection. Baby looks good on bedside limited ultrasound. Please follow up with your [facility] GUIDE in the next 1-2 days for further evaluation. Please take Tylenol with food every 4-6 hours as needed for pain and swelling. Follow up with OUTPATIENT RECEPTIONIST provider in 3-5 days. Return to ED sooner if any worsening pain, vaginal bleeding, leaking fluid, fever, vomiting, or concerns. Increase oral fluids. Referrals: [facility] [Outside] - 2 days Karin Montelongo [Primary Care Provider] - Medical Decision Making Exam is consistent with a 26-week , does have some tenderness to her lower abdomen and right lower quadrant, ultrasound at bedside with Dr. Albania Connors which shows positive heart movement at a rate of 150, good movement. Will check urinalysis and have patient follow-up with [facility]. HPI General Mode of arrival: ambulatory. Date/Time Provider Initiated Documentation: 12/07/21 18:45. Limitations to Documentation: no limitations. Information obtained by: patient, RN notes reviewed and old records reviewed. HPI Narrative: 26-year-old female 26 weeks prima presents to the ER with chief complaint of lower abdominal pain x3 days. Patient states that she was seen at [facility] yesterday and was placed on the heart monitor and was discharged home. She was instructed that if the pain got worse to return there however she states that she did not have enough gas to get [facility] so she presented here instead. This is her first . She denies any vaginal bleeding she does report some white vaginal discharge which has been heavy throughout this . She denies any dysuria or problems urinating. She does have a past medical history of asthma, ADHD, migraine. She denies any diarrhea vomiting or any other concerns. She states that she did have a fever approximately 3 days ago. Related Data Allergies Allergy/AdvReac Type Severity Reaction Status Date / Time doxycycline Allergy Intermediate Hives Unverified 12/07/21 18:50 Sulfa (Sulfonamide Allergy Intermediate Hives Unverified 12/07/21 18:50 Antibiotics) lavender (Lavandula Allergy Mild Hives Unverified 12/07/21 18:50 angustifolia) General Stated Complaint: Abd Prob GARCIA: 2 Review of Systems All systems reviewed & are unremarkable except as noted in HPI and below Gastrointestinal Gastrointestinal: Reports abdominal pain, Denies diarrhea, Denies nausea and Denies vomiting Genitourinary Genitourinary: Reports as per HPI and Reports vaginal discharge PFSH All Active Problems (Updated 12/07/21 @ 19:49 by Madison Mccurdy NP) Abdominal pain during (Acute) GERD (gastroesophageal reflux disease) (Chronic) (Acute) Positive test (Acute) Medical History (Updated 12/07/21 @ 19:49 by Madison Mccurdy NP) Asthma Dx age 14yrs rare episodes uses rescue inhaler PRN Attention deficit hyperactivity disorder Bacterial urinary infection Migraine with aura Dx age 13yrs recent validation with aura [facility] [place] Surgical History Tonsillectomy and adenoidectomy 08/11 for sleep apnea Family History Mother Urologic disease Hypertension Other Diabetes Hyperlipidemia Personal history of malignant neoplasm Social History Smoking/Tobacco Use Status: Never Smoking risk assessment performed?: Yes Alcohol Intake: current Alcohol Intake frequency: a few times a month Drug use: Never Substance use type: does not use Do you feel safe at home: Yes Do you feel safe in your relationship?: Yes Exam Narrative Exam Narrative: Constitutional: Alert and oriented x3. Appears stated age. Normal body habitus. Head: Normocephalic, no trauma. Eyes: Pupils PERRL, Red reflex noted, EOM's intact. Eyelids symmetrical without lesions, discharge, or swelling. ENT: Bilateral TM's WNL, External ear normal to inspection, no mastoid TTP, swelling, or erythema, Nasal turbinates WNL, no nasal discharge. Normal dentition, Posterior pharynx WNL, no exudate. Chest: RRR, Normal S1, S2, distal pulses intact. Resp: Lungs clear to auscultation bilaterally, no wheezes, rales, or rhonchi. Abdomen: Soft, non-distended, Normoactive bowel sounds all 4 quads. Musculoskeletal: Normal gait, 5/5 strength to all four extremities. Skin: No suspicious rashes or lesions. Capillary refill less than 2 sec. Neurologic: Cranial nerves II-XII intact. Alert and oriented x 3. Motor: No deficits noted. Sensory: Intact bilaterally all 4 extremities. Reflexes: DTR's intact bilaterally.. Hematologic/Lymphatic: No ecchymosis, no lymphadenopathy. Course Vital Signs Vital signs: Vital Signs Temperature 36.6 C 12/07/21 18:51 Pulse 116 H 12/07/21 18:51 Respiratory Rate 22 12/07/21 18:51 Blood Pressure 143/85 H 12/07/21 18:51 Pulse Oximetry 99 12/07/21 18:51 Temperature 36.6 C 12/07/21 18:51 Temperature Source Temporal Artery Scan 12/07/21 18:51 Pulse 116 H 12/07/21 18:51 Respiratory Rate 22 12/07/21 18:51 Respiratory Effort Non-Labored 12/07/21 18:56 Blood Pressure 143/85 H 12/07/21 18:51 Blood Pressure Position Sitting 12/07/21 18:51 Pulse Oximetry 99 12/07/21 18:51 Oxygen Delivery Method Room Air 12/07/21 18:51 Oxygen Flow Rate 0 12/07/21 18:51 Pain Level 8 12/07/21 18:56
[2021-12-07 19:37] LABS: Bilirubin Negative (Negative); Blood Negative (Negative); Clarity Sl Cloudy (Clear); Glucose Negative (Negative); Ketones Negative (Negative); Leukocyte Esterase Negative (Negative); Nitrite Negative (Negative); Specific Gravity >= 1.030 (1.005-1.025)
[2021-12-07] MEDS: Acetaminophen 325 MG TAB 650 MG PO (19:38)
[2021-12-07 19:45] LABS: RBC 0-2 HPF (0-2)
[2021-12-07 19:46] LABS: Bacteria Few HPF (Negative); C & S Indicated? No; Crystals Moderate Amorphous HPF (Negative); Epithelial Cells Many HPF (Negative); Mucus Moderate (Negative)
== END 2021-12-07 19:52 | disposition home or self-care (01) ==
PROVIDERS: Emergency Provider Registered Nurse Emergency; PCP Nurse Practitioner Family
DX: O26.892 Other specified pregnancy related conditions, second trimester (principal); R10.31 Right lower quadrant pain; O99.512 Diseases of the respiratory system complicating pregnancy, second trimester; J45.909 Unspecified asthma, uncomplicated; Z3A.26 26 weeks gestation of pregnancy
CPT/HCPCS: 99282; 81003; 81015

== ENCOUNTER 2022-01-20 11:31 | Emergency (ER) | payer MEDICAID, SELFPAY ==
[2022-01-20 11:44] VITALS: BP 128/74; PULSE 83; RESP 20; TEMP 37.4; O2SAT 99
--- NOTE | 2022-01-20 12:00 | DI.US_ITS ---
Exam(s) US LOWER EXTREMITY VENOUS RT EXAM: US LOWER EXTREMITY VENOUS RT CLINICAL HISTORY: pain, [facility]. TECHNIQUE: Lower extremity venous ultrasound performed using grayscale, color-flow, and spectral Do ppler analysis. COMPARISON: No exams were available for comparison FINDINGS: The common femoral, femoral and popliteal veins demonstrate normal compressibility, augmentation, and color Doppler. The posterior tibial veins are patent. No saphenous vein thrombosis or other superfi cial venous thrombosis is seen. No hematoma or Campo's cyst is seen. IMPRESSION: Negative lower extremity ultrasound. No evidence of DVT. DATA REPOSITORY:
--- NOTE | 2022-01-20 12:15 | ED.GENADUL_ITS ---
Discharge Plan Disposition Patient Disposition: Home Condition: Stable Discharge Details Clinical Impression: Pain in right lower leg Primary Care Provider: Karin Montelongo ED Provider: Lincoln Espinoza Home Meds and New Rx's Prescriptions: Continued enoxaparin 150 mg/mL syringe 1 syrg subcut DAILY Discharge Instructions Instructions: Leg Pain (ED) Additional Instructions: Ultrasound is negative for DVT. Wear Denzel wrap as needed and use crutches if necessary, advance activity as tolerated. Rest, elevate, cool and/or warm compresses every 2 hours for 20 minutes. Please watch for new or worsening symptoms and return to the ER for any concerns. [id number] Tylenol as directed for discomfort. Continue taking your Lovenox as directed by the shovel operator at [facility]. Lastly, please reach out to your [facility] team later today or tomorrow to discuss your ER visit and need for outpatient reevaluation. Medical Decision Making 26-year-old female presents with right lower extremity pain, concern for worsening DVT. I was able to review the records from [facility], she had an acute occlusive deep venous thrombosis of one of the paired peroneal veins. Hematology was consulted and she was initiated on 150 mg subcu Lovenox daily for the next 90 days. Patient recently had laboratory values including coags at [facility], no clear indication to repeat this today. Clinically her discomfort appears to musculoskeletal. There is no erythema or warmth, no signs of secondary infection. No recent illness or trauma. No evidence of septic joint. Plan is to repeat ultrasound and reassess Ultrasound is negative for DVT Discussed ultrasound results with patient. She is relieved. Given the ultrasound is negative, I see no indication to change her anticoagulation therapy or consult [facility] hematology emergently. Plan to treat with crutches and Denzel wrap and conservative measures for musculoskeletal discomfort. Standard discharge and return precautions were provided. Patient understands, is agreeable to this plan, and has no additional questions or concerns upon discharge. This documentation was generated using Mpayyation system, please disregard any oddities of phrase or misspellings. Medical Records Medical records reviewed: Yes I reviewed the patient's medical records. Imaging Data Radiologic Study: Attestation: I personally reviewed and interpreted this imaging study as follows: Imaging: Ultrasound Radiologist's impression: Exam(s) US LOWER EXTREMITY VENOUS RT EXAM: US LOWER EXTREMITY VENOUS RT CLINICAL HISTORY: pain, recent dvt at [facility]? on Lovenox. TECHNIQUE: Lower extremity venous ultrasound performed using grayscale, color- flow, and spectral Doppler analysis. COMPARISON: No exams were available for comparison FINDINGS: The common femoral, femoral and popliteal veins demonstrate normal compressibility, augmentation, and color Doppler. The posterior tibial veins are patent. No saphenous vein thrombosis or other superficial venous thrombosis is seen. No hematoma or Campo's cyst is seen. IMPRESSION: Negative lower extremity ultrasound. No evidence of DVT. Sign Out No HPI General Mode of arrival: ambulatory . Date/Time Provider Initiated Documentation: 01/20/22 11:38 . Limitations to Documentation: no limitations . Information obtained by: patient . HPI Narrative: 26-year-old female presents to the ER for right lower extremity pain that began over the past 24 hours, atraumatic, recently diagnosed with a DVT of her right lower extremity while at [facility], initiated on Lovenox 150 mg nightly for the next 3-month, concerns now that her DVT may be getting larger. She states that she is been taking Lovenox as directed. Denies fever, chest pain, shortness of breath, joint pain, recent fall or injury. Patient states that she contacted the [facility] team who recommended going to the nearest ER for further evaluation including ultrasound. Patient states that the DVT initially likely resulted from a prolonged hospitalization, -, epidural, immobilization. Related Data Home Medications Medication Instructions Recorded Confirmed enoxaparin 150 mg/mL subcutaneous 1 syrg subcut DAILY 01/20/22 01/20/22 syringe Allergies Allergy/AdvReac Type Severity Reaction Status Date / Time doxycycline Allergy Intermediate Hives Unverified 12/07/21 18:50 Sulfa (Sulfonamide Allergy Intermediate Hives Unverified 12/07/21 18:50 Antibiotics) lavender (Lavandula Allergy Mild Hives Unverified 12/07/21 18:50 angustifolia) General Stated Complaint: GenMedical GARCIA: 3 Review of Systems Constitutional Constitutional: Denies fever(s) and Denies weakness Cardiovascular Cardiovascular: Denies chest pain and Denies dyspnea Respiratory Respiratory: Denies cough and Denies dyspnea Gastrointestinal Gastrointestinal: Denies abdominal pain, Denies nausea and Denies vomiting Musculoskeletal Musculoskeletal: Denies numbness, Denies stiffness and Reports tingling Integumentary/Breasts Skin/Breast: Denies rash Neurologic Neurologic: Denies numbness, Reports tingling and Denies weakness Hematologic/Lymphatic Hematologic/Lymphatic: Denies easy bleeding and Denies easy bruising PFSH All Active Problems (Updated 01/20/22 @ 13:43 by JOHN Angelo) Pain in right lower leg (Acute) GERD (gastroesophageal reflux disease) (Chronic) (Acute) Positive test (Acute) Medical History (Updated 01/20/22 @ 13:43 by JOHN Angelo) Asthma Dx age 14yrs rare episodes uses rescue inhaler PRN Attention deficit hyperactivity disorder Bacterial urinary infection Migraine with aura Dx age 13yrs recent validation with aura [facility] [place] Surgical History Tonsillectomy and adenoidectomy 08/11 for sleep apnea Family History Mother Urologic disease Hypertension Other Diabetes Hyperlipidemia Personal history of malignant neoplasm Social History Smoking/Tobacco Use Status: Never Smoking risk assessment performed?: Yes Alcohol Intake: current Alcohol Intake frequency: a few times a month Drug use: Never Substance use type: does not use Do you feel safe at home: Yes Do you feel safe in your relationship?: Yes Exam Const General: cooperative, healthy appearing, comfortable and no acute distress Orientation: alert and awake [facility] Head: normal to inspection, normocephalic and atraumatic Eyes Conjunctivae: conjunctivae normal Neck Neck: normal visual inspection, full ROM, trachea midline and supple Resp Effort & Inspection: normal respiratory effort and able to speak in complete sentences Auscultation: clear to auscultation bilaterally Cardio Rate: regular rate Rhythm: regular rhythm Skin General skin exam: no rashes or lesions noted Neuro General: patient alert, patient awake, moves all extremities and no focal motor deficits Cognition: normal cognition Speech: speech normal Gait: antalgic (Minimally) Motor: muscle tone normal throughout Sensory Exam: no sensory deficits noted Extrem General: full ROM and capillary refill normal Other: Right lower extremity normal inspection, no edema. Negative Homans' sign. Lower extremities appear symmetric bilaterally. Right lower extremity with normal pedal pulse and capillary refill. She does have mild lower posterior calf pain as well as mid foot pain along the plantar aspect. Skin is intact. No erythema or warmth. Neuro, vascular, tendon intact Psych Appearance: grossly normal Mental Status: mental status grossly normal Course Vital Signs Vital signs: Vital Signs Temperature 37.4 C 01/20/22 11:44 Pulse 83 01/20/22 11:44 Respiratory Rate 20 01/20/22 11:44 Blood Pressure 128/74 01/20/22 11:44 Pulse Oximetry 99 01/20/22 11:44 Temperature 37.4 C 01/20/22 11:44 Temperature Source Oral 01/20/22 11:44 Pulse 83 01/20/22 11:44 Respiratory Rate 20 01/20/22 11:44 Respiratory Effort Non-Labored 01/20/22 11:57 Blood Pressure 128/74 01/20/22 11:44 Blood Pressure Position Sitting 01/20/22 11:44 Pulse Oximetry 99 01/20/22 11:44 Oxygen Delivery Method Room Air 01/20/22 11:44 Oxygen Flow Rate 0 01/20/22 11:44 Pain Level 5 01/20/22 11:44 PAWSS Have you Been Recently Intoxicated or Drunk Within the Last 30 days?: No Have you Ever Experienced Previous Episodes of Alcohol Withdrawal?: No Have you ever Experienced Withdrawal Seizures?: No Have you ever Experienced Delirium Tremens(DT)s?: No Have you ever undergone Alcohol Rehabilitation Treatment (i.e, inpt ot outpatient treatment programs)?: No Have you ever Experienced Blackouts?: No Have you ever Combined Alcohol with other Downers within the last 90 days?: No Have you ever Combined Alcohol with any other Substance of Abuse during the last 90 days?: No Positive Blood Alcohol level on Presentation? [PCS.BAL]: No Evidence of Increased Autonomic Activity (i.e. HR>120, tremor, sweating, agitation, nausea)?: No Result: 0
[2022-01-20 14:12] VITALS: PULSE 80; O2SAT 99
== END 2022-01-20 14:10 | disposition home or self-care (01) ==
PROVIDERS: Emergency Provider Physician Assistant; PCP Nurse Practitioner Family
DX: M79.661 Pain in right lower leg (principal); Z86.718 Personal history of other venous thrombosis and embolism; Z79.01 Long term (current) use of anticoagulants
CPT/HCPCS: 99284; 93971; 99283

== ENCOUNTER 2022-07-11 12:35 | Emergency (ER) | payer MEDICAID, SELFPAY ==
[2022-07-11 12:39] VITALS: BP 129/88; PULSE 98; RESP 24; TEMP 36.6; O2SAT 98
--- NOTE | 2022-07-11 12:45 | RT.EKG_ITS ---
APPROVED REPORT Exam: Resting ECG Reason for Exam: Patient Location: E HR:83 bpm ECG Measurements Heart Rate 83 AXIS UT 150 P 11 QRSd 92 QRS 47 QT 395 T 11 QTc 464 Conclusion Sinus rhythm...normal P axis, V-rate 60- 99
--- NOTE | 2022-07-11 12:48 | ED.GENADUL_ITS ---
Discharge Plan Disposition Patient Disposition: Home Condition: Good Discharge Details Clinical Impression: Asthmatic bronchitis Primary Care Provider: Karin Montelongo ED Provider: Kellen Meyer Home Meds and New Rx's Prescriptions: New prednisone 10 mg tablet 60 mg PO DAILY 4 Days Qty: 24 0RF Rx Instructions: start tomorrow afternoon Continued sertraline [Zoloft] 50 mg Tablet 50 mg PO DAILY Discharge Instructions Instructions: Acute Bronchitis (ED) Additional Instructions: Take your albuterol and prednisone as prescribed. Return to ED for severe chest pain or breathing trouble. Recheck with your PCP if no better in 48 hrs. Medical Decision Making Patient was updated on her test results. She feels much better after the DuoNeb. Really heard only very trace wheeze when listening to breath sounds. She does wheeze quite a bit when she coughs. We will give her both albuterol and prednisone to go home with. Pt. POC for RSV, flu, Covid was neg. HPI General Date/Time Provider Initiated Documentation: 07/11/22 12:47 . HPI Narrative: This 27-year-old female patient presents with a chief complaint of URI symptoms which have been ongoing for the past 2 days. She states she started with a sore throat and runny nose and progressed into congestion and cough. Denies fever chills, or rigors. She does have a headache. She says she has had some wheezing and feels like she is breathing through a straw. She does have a history of asthma. She has never been hospitalized or intubated for this. She has no medications at home. She has used albuterol in the past with good relief. She does acknowledge chest pain. When I ask her whether this is when she coughs she says no but it is a tightness and she has a stabbing in the center. Related Data Home Medications Medication Instructions Recorded Confirmed prednisone 10 mg tablet 60 mg PO DAILY wheeze 4 days #24 07/11/22 tabs sertraline 50 mg tablet (Zoloft) 50 mg PO DAILY 07/11/22 07/11/22 Previous Rx's Medication Instructions Recorded prednisone 10 mg tablet 60 mg PO DAILY wheeze 4 days #24 07/11/22 tabs Allergies Allergy/AdvReac Type Severity Reaction Status Date / Time doxycycline Allergy Intermediate Hives Unverified 07/11/22 12:43 Sulfa (Sulfonamide Allergy Intermediate Hives Unverified 07/11/22 12:43 Antibiotics) lavender (Lavandula Allergy Mild Hives Unverified 07/11/22 12:43 angustifolia) General Stated Complaint: RespSymp GARCIA: 4 Review of Systems Constitutional Constitutional: Denies chills, Denies fever(s), Denies headache(s) and Denies weakness Eyes Eyes: Denies diplopia and Reports other (no redness) ENT Ears, Nose, Mouth, and Throat: Denies otalgia, Denies headache(s), Denies nasal congestion, Denies nasal discharge, Denies neck pain and Denies sore throat Cardiovascular Cardiovascular: Reports chest pain (Tight around her thorax and sharp in the center), Denies palpitations and Denies dyspnea Respiratory Respiratory: Denies cough and Denies dyspnea Comments: Says she feels like she is breathing through a straw Gastrointestinal Gastrointestinal: Denies abdominal pain, Denies diarrhea, Denies nausea and Denies vomiting Genitourinary Genitourinary: Denies dysuria Musculoskeletal Musculoskeletal: Denies myalgias, Denies muscle weakness, Denies neck pain, Denies numbness and Reports other (edema) Integumentary/Breasts Skin/Breast: Denies change in pigmentation and Denies rash Neurologic Neurologic: Denies headache(s), Denies numbness and Denies weakness Endocrine Endocrine: Denies palpitations PFSH All Active Problems (Updated 07/11/22 @ 14:15 by Kellen Meyer MD) Asthmatic bronchitis (Acute) GERD (gastroesophageal reflux disease) (Chronic) (Acute) Positive test (Acute) Medical History (Updated 07/11/22 @ 14:15 by Kellen Meyer MD) Asthma Dx age 14yrs rare episodes uses rescue inhaler PRN Attention deficit hyperactivity disorder Bacterial urinary infection Migraine with aura Dx age 13yrs recent validation with aura [facility] [place] Surgical History Tonsillectomy and adenoidectomy 08/11 for sleep apnea Family History Mother Urologic disease Hypertension Other Diabetes Hyperlipidemia Personal history of malignant neoplasm Social History Smoking/Tobacco Use Status: Never Smoking risk assessment performed?: Yes Alcohol Intake: current Alcohol Intake frequency: a few times a month Drug use: Never Substance use type: does not use Do you feel safe at home: Yes Do you feel safe in your relationship?: Yes Exam Const General: no acute distress, well developed, well groomed and not in acute distress Nutritional Appearance: well nourished Orientation: alert and oriented x3 HENMT Head: normocephalic and atraumatic Ears: external ears normal Mouth: oropharynx normal and moist mucous membranes Throat: posterior oropharynx normal Eyes Conjunctivae: conjunctivae normal Neck Neck: full ROM and supple Chest Chest: normal inspection of the chest Resp Effort & Inspection: normal respiratory effort Auscultation: clear to auscultation bilaterally (except for trace wheeze, exacerbated w/cough) Cardio Rate: regular rate Rhythm: regular rhythm Heart Sounds: no murmurs and no rubs GI Inspection: normal to inspection Palpation: soft, nontender and other (non distended) Auscultation: normal bowel sounds Skin General skin exam: no rashes or lesions noted and other (pink, warm, dry) Neuro General: patient alert, patient awake and patient oriented x3 Speech: speech normal Motor: other (MAJOR) Sensory Exam: no sensory deficits noted Extrem General: normal to inspection, full ROM and pedal edema present Psych Mental Status: mental status grossly normal Speech and Movement: speech and movement normal Affect: normal affect Course Vital Signs Vital signs: Vital Signs Temperature 36.6 C 07/11/22 12:39 Pulse 98 H 07/11/22 12:39 Respiratory Rate 24 07/11/22 12:39 Blood Pressure 129/88 07/11/22 12:39 Pulse Oximetry 98 07/11/22 12:39 Temperature 36.6 C 07/11/22 12:39 Temperature Source Oral 07/11/22 12:39 Pulse 98 H 07/11/22 12:39 Respiratory Rate 24 07/11/22 12:39 Respiratory Effort Short of Breath 07/11/22 12:45 Respiratory Depth Normal 07/11/22 12:45 Blood Pressure 129/88 07/11/22 12:39 Blood Pressure Position Sitting 07/11/22 12:39 Pulse Oximetry 98 07/11/22 12:39 Oxygen Delivery Method Room Air 07/11/22 12:39 Oxygen Flow Rate 0 07/11/22 12:39 Lab/Test Results Lab/Test Results: EKG: NSR 85, normal intervals and EKG. No evidence of pericarditis or myocarditis. Chest x-ray: Heart is normal in size and there are no cardiopulmonary abnormalities.
[2022-07-11] MEDS: Albuterol/Ipratropium 3 ML UPD VIAL UPD (13:05)
--- NOTE | 2022-07-11 13:47 | DI.RAD_ITS ---
Exam(s) XR PORTABLE CHEST AP EXAM: XR PORTABLE CHEST AP CLINICAL HISTORY: CP, sob. TECHNIQUE: 2D digital imaging was performed. COMPARISON: CR,XR XR CHEST 2V PA LATERAL from 05/13/2021 FINDINGS: Single AP portable view. Heart size is upper normal. The mediastinum is not widened. Lungs are clear. No infiltrates nor obvious pleural effusions. IMPRESSION: No acute pulmonary findings on this single AP portable view of the chest. DATA REPOSITORY: RADIATION DOSE DELIVERED:
[2022-07-11] MEDS: Albuterol HFA 8 GM 60 PUFF INH IH (14:14)
[2022-07-11] MEDS: predniSONE 20 MG TAB 60 MG PO (14:14)
[2022-07-11 14:15] VITALS: BP 129/88; PULSE 90; RESP 24; TEMP 36.6; O2SAT 98
--- NOTE | 2022-07-11 14:19 | DI.VRAD_ITS ---
PROCEDURE INFORMATION: Exam: XR Chest Exam date and time: 07/11/2022 1:42 PM Age: 27 years old Clinical indication: Pain; Shortness of breath; Other: Not specified TECHNIQUE: Imaging protocol: Radiologic exam of the chest. Views: 1 view. COMPARISON: CR XR CHEST 2V PA LATERAL 05/13/2021 9:34 PM FINDINGS: Lungs: Unremarkable. No consolidation. Pleural spaces: Unremarkable. No pleural effusion. No pneumothorax. Heart/Mediastinum: Unremarkable. No cardiomegaly. Bones/joints: Unremarkable. IMPRESSION: No acute findings. Dictated and Authenticated by: Teo Watkins MD. Ordering:KARLA Foreman MD
== END 2022-07-11 14:29 | disposition home or self-care (01) ==
PROVIDERS: Emergency Provider Emergency Medicine; PCP Nurse Practitioner Family
DX: J45.909 Unspecified asthma, uncomplicated (principal); R06.02 Shortness of breath; R07.9 Chest pain, unspecified
CPT/HCPCS: 87426; 93005; 99284; 71045; 93010; 99283; J7512; J7620

== ENCOUNTER 2022-11-12 17:03 | Outpatient (REF) | payer MEDICAID, SELFPAY ==
[2022-11-12 22:44] LABS: Bacteria Moderate HPF (Negative); C & S Indicated? C&S Done As Ordered; Crystals Many Amorphous HPF (Negative); Epithelial Cells Many HPF (Negative); Mucus Negative (Negative); RBC >50 HPF (0-2)
== END 2022-11-12 17:04 | disposition home or self-care (01) ==
LOC: LBN 17:03
PROVIDERS: PCP Nurse Practitioner Family; Visit Provider Physician Assistant Medical
DX: R30.0 Dysuria (principal); R82.79 Other abnormal findings on microbiological examination of urine
CPT/HCPCS: 81015; 87086

== ENCOUNTER 2023-08-28 22:19 | Emergency (ER) | payer MEDICAID, SELFPAY ==
[2023-08-28 22:39] VITALS: BP 143/91; PULSE 86; RESP 14; TEMP 37; O2SAT 99
--- NOTE | 2023-08-28 23:03 | W.ED.GENAD ---
Discharge Plan Disposition Patient Disposition: Home Discharge Details Clinical Impression: Pharyngitis Primary Care Provider: Unknown,Unknown ED Provider: Estuardo Moctezuma Home Meds and New Rx's Prescriptions: New lidocaine HCl [Lidocaine Viscous] 2 % solution 5 ml mucous membrane TID PRN (Reason: pain) Qty: 100 0RF No Action sertraline [Zoloft] 50 mg Tablet 50 mg PO DAILY Discharge Instructions Instructions: Viral Pharyngitis, Sore Throat, Adult ED Additional Instructions: At this time I believe your continued pharyngitis is just recovering from your cold. If you develop any new or significant worsening of symptoms, difficulty breathing, inability to swallow even saliva return immediately to the emergency department for reassessment given that we did not have ability to perform CT imaging at this time but I do not see any emergent conditions present on your exam today. Please use the lidocaine as recommended and follow-up with your primary care provider if not getting better in the next 24 to 48 hours. Referrals: Primary Care Provider [Outside] HPI General Mode of arrival: ambulatory. Date/Time Provider Initiated Documentation: 08/28/23 22:27. Limitations to Documentation: no limitations. Information obtained by: patient and RN notes reviewed. History of Present Illness 28 year old F presents to the emergency department with the chief complaint of Sore throat, cough, described as moderate, Quality is described as aching, Patient started experiencing this week(s) (3-4) and it has been constant. No relieving factors improve symptom(s), Other factors that worsen symptoms (Coughing) . Patient notes no other symptoms.. Patient did receive the following treatments prior to arrival, none Related Data Home Medications Medication Instructions Recorded Confirmed sertraline 50 mg tablet (Zoloft) 50 mg PO DAILY 07/11/22 07/11/22 lidocaine HCl 2 % mucosal solution 5 ml mucous membrane TID PRN pain 08/28/23 (Lidocaine Viscous) #100 mL Previous Rx's Medication Instructions Recorded lidocaine HCl 2 % mucosal solution 5 ml mucous membrane TID PRN pain 08/28/23 (Lidocaine Viscous) #100 mL Allergies Allergy/AdvReac Type Severity Reaction Status Date / Time doxycycline Allergy Intermediate Hives Unverified 07/11/22 12:43 Sulfa (Sulfonamide Allergy Intermediate Hives Unverified 07/11/22 12:43 Antibiotics) lavender (Lavandula Allergy Mild Hives Unverified 07/11/22 12:43 angustifolia) General Stated Complaint: Sorethroat GARCIA: 4 Review of Systems Constitutional Constitutional: Denies chills, Denies fatigue, Denies fever(s), Denies headache(s) and Denies poor appetite ENT Ears, Nose, Mouth, and Throat: Reports as per HPI, Reports otalgia, Denies headache(s), Reports nasal congestion, Reports sore throat, Denies throat swelling and Denies tongue swelling Cardiovascular Cardiovascular: Denies chest pain and Denies dyspnea Respiratory Respiratory: Denies chest congestion, Reports cough and Denies dyspnea Neurologic Neurologic: Denies headache(s) Endocrine Endocrine: Denies fatigue Allergic/Immunologic Allergic/Immunologic: Denies throat swelling and Denies tongue swelling Exam Const General: cooperative, healthy appearing, comfortable, no acute distress and not ill appearing Orientation: alert, awake and oriented x3 HENMT Head: normal to inspection and normocephalic Ears: hearing grossly normal bilaterally, external ears normal, TM's normal bilaterally and mastoids normal General nose exam: external nose normal and nares normal Face and sinus: normal facial exam Mouth: oral mucosae normal, lip normal, tongue normal, no audible dysphonia, no drooling and no trismus Teeth and gingiva: dentition normal and gingiva normal Throat: posterior oropharynx normal, uvula midline, no peritonsillar masses and tonsils absent Neck Neck: normal visual inspection, full ROM, no lymphadenopathy and no meningeal signs Resp Effort & Inspection: normal respiratory effort, able to speak in complete sentences and no stridor Auscultation: clear to auscultation bilaterally Cardio Rate: regular rate Rhythm: regular rhythm Heart Sounds: S1 normal and S2 normal Skin General skin exam: no rashes or lesions noted Course Vital Signs Vital signs: Vital Signs Temperature 37.0 C 08/28/23 22:39 Pulse 86 08/28/23 22:39 Respiratory Rate 14 08/28/23 22:39 Blood Pressure 143/91 H 08/28/23 22:39 Pulse Oximetry 99 08/28/23 22:39 Temperature 37.0 C 08/28/23 22:39 Pulse 86 08/28/23 22:39 Respiratory Rate 14 08/28/23 22:39 Blood Pressure 143/91 H 08/28/23 22:39 Pulse Oximetry 99 08/28/23 22:39 Oxygen Delivery Method Room Air 08/28/23 22:39 Oxygen Flow Rate 0 08/28/23 22:39 End Tidal Co2 7 08/28/23 22:39 Medical Decision Making Patient presenting to the emergency department for chief complaint of sore throat that is worsened by coughing. Patient reports that she has had this for the last 3 to 4 weeks where she was initially ill with more upper respiratory symptoms that have slowly resolved but she is continuing to have the sore throat. Patient reports that yesterday evening she was coughing quite a bit making her throat feel worse and having discomfort with swallowing. Patient denies any fever or chills chest pain shortness of breath or other symptoms. Exam consistent with Pharyngitis. no signs of deep neck space infection ( Retropharyngeal abscess, Jeffery's angina, Parapharyngeal space infection, Peritonsillar Abscess (DE[employer])) or Epiglottitis. Pt non toxic and stable. Strep swab was performed and negative and was sent off for culture given that she was around somebody who had strep when she started having her symptoms but given the cough and low Centor score I have lower suspicion of bacterial infection. Will give patient dose of Decadron and lidocaine to help with discomfort pending culture. Will have patient return for new or worsening symptoms otherwise follow-up with primary care provider. After discussion of diagnosis and plan of care patient has no further needs, questions, or concerns and states clear understanding to return to the emergency department for any worsening symptoms. This documentation was generated using [employer] dictation system, please disregard any oddities of phrase or misspellings. Lab Data Lab results reviewed: Yes I reviewed the patient's lab results. Quality:SDOH Health Related Social Needs: No Data to Display PFSH All Active Problems Pharyngitis (Acute) GERD (gastroesophageal reflux disease) (Chronic) (Acute) Positive test (Acute) Medical History Asthma Dx age 14yrs rare episodes uses rescue inhaler PRN Attention deficit hyperactivity disorder Bacterial urinary infection Migraine with aura Dx age 13yrs recent validation with aura [facility] [place] Surgical History Tonsillectomy and adenoidectomy 08/11 for sleep apnea Family History Mother Urologic disease Hypertension Other Diabetes Hyperlipidemia Personal history of malignant neoplasm Social History Smoking/Tobacco Use Status: Never Smoking risk assessment performed?: Yes Alcohol Intake: current Alcohol Intake frequency: a few times a month Drug use: Never Substance use type: does not use Do you feel safe at home: Yes Do you feel safe in your relationship?: Yes
[2023-08-28 23:10] VITALS: BP 138/84; PULSE 84; RESP 14; TEMP 36.7; O2SAT 99
[2023-08-28] MEDS: Dexamethasone 10 MG/ML VIAL PO (23:10)
[2023-08-28 23:18] VITALS: BP 138/84; PULSE 84; RESP 14; TEMP 37; O2SAT 99
[2023-08-28] MEDS: Lidocaine 2% Viscous 1 ML Solution 15 ML PO (23:50)
== END 2023-08-28 23:30 | disposition home or self-care (01) ==
LOC: ER 08-29 02:34
PROVIDERS: Emergency Provider Nurse Practitioner Family; PCP Nurse Practitioner Family
DX: J02.9 Acute pharyngitis, unspecified (principal); R05.9 Cough, unspecified
CPT/HCPCS: 87880; 99283; 87081; J1100

== ENCOUNTER 2024-02-01 18:07 | Emergency (ER) | payer MEDICAID, SELFPAY ==
[2024-02-01 18:09] VITALS: BP 147/87; PULSE 115; RESP 16; TEMP 36.7; O2SAT 99
--- NOTE | 2024-02-01 18:15 | DI.RAD_ITS ---
Exam(s) XR CERVICAL SP GARDNER TRAUMA 2-3V EXAM: XR CERVICAL SP GARDNER TRAUMA 2-3V CLINICAL HISTORY: Cervical radiculopathy, neck pain. TECHNIQUE: 2D digital imaging was performed. COMPARISON: No exams were available for comparison FINDINGS: 3 views No evidence of fracture, listhesis, nor offset of the spinal laminar line. Normal disc height at eac h level. There is mild reversal of the normal curvature of the cervical spine. There is no facet ma lalignment evident. No incidental cervical ribs. Bone density normal. No osseous lesions. IMPRESSION: No fractures evident. There is some reversal of the normal curvature either due to positioning or mu scle spasm. DATA REPOSITORY: RADIATION DOSE DELIVERED:
[2024-02-01 18:20] VITALS: BP 147/87; PULSE 115; RESP 16; TEMP 36.7; O2SAT 99
--- NOTE | 2024-02-01 18:25 | W.ED.GENAD ---
Discharge Plan Disposition Patient Disposition: Home Condition: Stable Discharge Details Clinical Impression: Cervical muscle strain Primary Care Provider: Sonia Melvin ED Provider: Madison Mccurdy Home Meds and New Rx's Prescriptions: No Action sertraline [Zoloft] 50 mg Tablet 50 mg PO DAILY Discharge Instructions Instructions: Neck Pain Exercises, Neck Pain ED Additional Instructions: X-rays of your neck shows some straightening of your cervical spine which is indication of muscle spasm. I do suspect that you strained the left side of your neck which is also called torticollis. You may alternate ice and heat. Try massage. Take the muscle relaxers as directed. Please take Tylenol or Ibuprofen with food every 4-6 hours as needed for pain and swelling. You may also apply topical IcyHot or Biofreeze or similar such as Bengay to help relieve the pain. Follow up with primary care provider in 3-5 days. Return to ED sooner if any worsening or concerns. The tingling should go away once this muscle as relaxed. Thank you for allowing us to care for you today. Referrals: Sonia Melvin [Primary Care Provider] - 3 days HPI General Mode of arrival: ambulatory. Date/Time Provider Initiated Documentation: 02/01/24 18:19. Limitations to Documentation: no limitations. Information obtained by: patient, RN notes reviewed and old records reviewed. HPI Narrative: 28-year-old female presents to the ER with a chief complaint of neck pain which radiates down into her left arm. She does have some left lateral paraspinous tenderness with palpation. She has increased pain with flexion, some pain with rotation. She also endorses some tingling in her hands intermittently. 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 She denies any chest pain shortness of breath she does have a recent history of a URI but not currently. Denies any fever. Does have a past medical history of migraine, ADHD and asthma. She reports that this neck pain has been going on for approximately 2 weeks and is starting to give her headaches. Related Data Home Medications ?Medication ?Instructions ?Recorded ?Confirmed sertraline 50 mg tablet (Zoloft) 50 mg PO DAILY 07/11/22 02/01/24 Allergies Allergy/AdvReac Type Severity Reaction Status Date / Time doxycycline Allergy Intermediate Hives Unverified 02/01/24 18:16 Sulfa (Sulfonamide Allergy Intermediate Hives Unverified 02/01/24 18:16 Antibiotics) lavender (Lavandula Allergy Mild Hives Unverified 02/01/24 18:16 angustifolia) General Stated Complaint: GenMedical GARCIA: 3 Review of Systems All systems reviewed & are unremarkable except as noted in HPI and below ENT Ears, Nose, Mouth, and Throat: Reports neck pain Musculoskeletal Musculoskeletal: Reports as per HPI, Reports neck pain and Reports tingling (Left hand) Neurologic Neurologic: Reports tingling (Left hand) Exam Narrative Exam Narrative: Constitutional: Alert and oriented x3. Appears stated age. Normal body habitus. Head: Normocephalic, no trauma. Eyes: Pupils PERRL, Red reflex noted, EOM's intact. Eyelids symmetrical without lesions, discharge, or swelling. Chest: RRR, Normal S1, S2, distal pulses intact. Resp: Lungs clear to auscultation bilaterally, no wheezes, rales, or rhonchi. Musculoskeletal: Normal gait, Moves all 4 extremities without difficulty. No midline C-spine tenderness with palpation no crepitus no step-off, does have some left lateral paraspinous tenderness to the cervical area with palpation this is the pain that she has been having that radiates down into her left arm. Skin: No suspicious rashes or lesions. Capillary refill less than 2 sec. Back/Spine/Pelvis Back: no CVA tenderness Cervical Spine: normal cervical lordosis, cervical muscular tenderness and No step off deformity Thoracic/Lumbar Spine: thoracic and lumbar spine normal to inspection Course Vital Signs Vital signs: Vital Signs Temperature 36.7 C 02/01/24 18:09 Pulse 115 H 02/01/24 18:09 Respiratory Rate 16 02/01/24 18:09 Blood Pressure 147/87 H 02/01/24 18:09 Pulse Oximetry 99 02/01/24 18:09 Temperature 36.7 C 02/01/24 18:20 Temperature Source Oral 02/01/24 18:20 Pulse 115 H 02/01/24 18:20 Respiratory Rate 16 02/01/24 18:20 Respiratory Effort Normal, Non-Labored 02/01/24 18:20 Blood Pressure 147/87 H 02/01/24 18:20 Blood Pressure Position Sitting 02/01/24 18:20 Pulse Oximetry 99 02/01/24 18:20 Oxygen Delivery Method Room Air 02/01/24 18:20 Oxygen Flow Rate 0 02/01/24 18:20 Pain Level 6 02/01/24 18:20 Comment pain state pain increases with activities, however if she stays stationery its fine 02/01/24 18:20 Medical Decision Making 28-year-old female presents to the ER with a chief complaint of neck pain which radiates down into her left arm. She does have some left lateral paraspinous tenderness with palpation. She has increased pain with flexion, some pain with rotation. She also endorses some tingling in her hands intermittently. X-ray of C-spine ordered, lidocaine patch and Flexeril. Differential diagnose includes but not limited to cervical radiculopathy, cervical degenerative joint disease, osteoarthritis, pinched nerve, occult fracture. X-ray shows reverse curvature of the C-spine, no acute fracture. I do suspect musculoskeletal spasm. Will give Flexeril 3 tablets to go home, a prescription for Flexeril and instruct on massage and stretching and follow-up care. This text was generated using [employer] system, please disregard any oddities of phrase or misspellings. Imaging Data Radiologic Study: Imaging: X-Ray Radiologist's impression: CLINICAL HISTORY: Cervical radiculopathy, neck pain. TECHNIQUE: 2D digital imaging was performed. COMPARISON: No exams were available for comparison FINDINGS: 3 views No evidence of fracture, listhesis, nor offset of the spinal laminar line. Normal disc height at each level. There is mild reversal of the normal curvature of the cervical spine. There is no facet malalignment evident. No incidental cervical ribs. Bone density normal. No osseous lesions. IMPRESSION: No fractures evident. There is some reversal of the normal curvature either due to positioning or muscle spasm. Quality:SDOH Health Related Social Needs: No Data to Display PFSH All Active Problems (Updated 02/01/24 @ 19:35 by Madison Mccuryd NP) Cervical muscle strain (Acute) GERD (gastroesophageal reflux disease) (Chronic) (Acute) Positive test (Acute) Medical History (Updated 02/01/24 @ 19:35 by Madison Mccurdy NP) Asthma Dx age 14yrs rare episodes uses rescue inhaler PRN Attention deficit hyperactivity disorder Bacterial urinary infection Migraine with aura Dx age 13yrs recent validation with aura [facility] [place] Surgical History Tonsillectomy and adenoidectomy 08/11 for sleep apnea Family History Mother Urologic disease Hypertension Other Diabetes Hyperlipidemia Personal history of malignant neoplasm Social History Smoking/Tobacco Use Status: Former Tobacco Use Tobacco: How many years used: 1 Smoking risk assessment performed?: Yes Alcohol Intake: current Alcohol Intake frequency: a few times a month Alcohol type: beer Drug use: Never Substance use type: does not use Details: patient state she stopped smoking when she turned 24 years old Housing: apartment Do you feel safe at home: Yes Do you feel safe in your relationship?: Yes PAWSS Have you Been Recently Intoxicated or Drunk Within the Last 30 days?: No Have you Ever Experienced Previous Episodes of Alcohol Withdrawal?: No Have you ever Experienced Withdrawal Seizures?: No Have you ever Experienced Delirium Tremens(DT)s?: No Have you ever undergone Alcohol Rehabilitation Treatment (i.e, inpt ot outpatient treatment programs)?: No Have you ever Experienced Blackouts?: No Have you ever Combined Alcohol with other Downers within the last 90 days?: No Have you ever Combined Alcohol with any other Substance of Abuse during the last 90 days?: No Positive Blood Alcohol level on Presentation? [PCS.BAL]: No Evidence of Increased Autonomic Activity (i.e. HR>120, tremor, sweating, agitation, nausea)?: No Result: 0
[2024-02-01] MEDS: Cyclobenzaprine 10 MG TAB PO (19:05)
[2024-02-01] MEDS: Lidocaine 5% Patch 1 PATCH TP (19:06)
[2024-02-01] MEDS: Cyclobenzaprine 10 MG TAB, 3 TABS/BTL PO (19:40)
[2024-02-01 19:43] VITALS: BP 123/79; PULSE 85; RESP 14; O2SAT 98
== END 2024-02-01 19:43 | disposition home or self-care (01) ==
PROVIDERS: Emergency Provider Registered Nurse Emergency; PCP Nurse Practitioner Family
DX: S16.1XXA Strain of muscle, fascia and tendon at neck level, initial encounter (principal); X58.XXXA Exposure to other specified factors, initial encounter
CPT/HCPCS: 99283; 72040

== ENCOUNTER 2024-07-09 11:41 | Emergency (ER) | payer MEDICAID, SELFPAY ==
[2024-07-09 11:46] VITALS: BP 156/81; PULSE 104; RESP 14; TEMP 37.1; O2SAT 98
[2024-07-09 12:15] VITALS: BP 156/81; PULSE 104; RESP 14; TEMP 37.1; O2SAT 98
--- NOTE | 2024-07-09 12:38 | W.ED.GENAD ---
Discharge Plan Disposition Patient Disposition: Home Condition: Stable Discharge Details Clinical Impression: Sinusitis Primary Care Provider: Sonia Melvin ED Provider: Juvenal Ross Home Meds and New Rx's Prescriptions: New amoxicillin-pot clavulanate 875-125 mg tablet 1 tab PO BID 7 Days Qty: 14 0RF Discharge Instructions Instructions: Sinusitis, Adult ED Additional Instructions: Start Mucinex Claritin and Flonase, all available [id number]. Take antibiotic as prescribed. Follow-up with PCP as needed. HPI General Date/Time Provider Initiated Documentation: 07/09/24 11:57. Limitations to Documentation: no limitations. Information obtained by: patient. HPI Narrative: 29-year-old female without significant past medical history presents for evaluation of 2 weeks worth of ear pain, facial pain. She reports that she started with some mild URI symptoms that she thought was a cold or allergies. She reports that those symptoms mostly improved, but her ear pain has persisted. She reports severe pain in her ears that radiates to the front of her face. She notes that elevation changes are significantly bothersome. She denies any fever. She denies any drainage from ears. She reports some mild improvement with Claritin. Related Data Home Medications ?Medication ?Instructions ?Recorded ?Confirmed amoxicillin 875 mg-potassium 1 tab PO BID 7 days #14 tabs 07/09/24 clavulanate 125 mg tablet Previous Rx's ?Medication ?Instructions ?Recorded amoxicillin 875 mg-potassium 1 tab PO BID 7 days #14 tabs 07/09/24 clavulanate 125 mg tablet Allergies Allergy/AdvReac Type Severity Reaction Status Date / Time doxycycline Allergy Intermediate Hives Unverified 07/09/24 11:52 Sulfa (Sulfonamide Allergy Intermediate Hives Unverified 07/09/24 11:52 Antibiotics) lavender (Lavandula Allergy Mild Hives Unverified 07/09/24 11:52 angustifolia) General Stated Complaint: EarProblem GARCIA: 4 Exam Narrative Exam Narrative: Review of Systems: All systems reviewed & are unremarkable except as noted in HPI and below Well-developed, no acute distress NCAT Bilateral TMs with clear effusion, no erythema or bulging Maxillary tenderness No oropharynx abnormality Mild cervical adenopathy PERRL, normal conjunctiva RRR Unlabored respiratory effort Course Vital Signs Vital signs: Vital Signs Temperature 37.1 C 07/09/24 11:46 Pulse 104 H 07/09/24 11:46 Respiratory Rate 14 07/09/24 11:46 Blood Pressure 156/81 H 07/09/24 11:46 Pulse Oximetry 98 07/09/24 11:46 Temperature 37.1 C 07/09/24 12:15 Temperature Source Oral 07/09/24 11:46 Pulse 104 H 07/09/24 12:15 Respiratory Rate 14 07/09/24 12:15 Blood Pressure 156/81 H 07/09/24 12:15 Blood Pressure Position Sitting 07/09/24 11:46 Pulse Oximetry 98 07/09/24 12:15 Oxygen Delivery Method Room Air 07/09/24 11:46 Oxygen Flow Rate 0 07/09/24 11:46 Pain Level 5 07/09/24 12:15 Medical Decision Making Emergent evaluation of ear pain. Initial differential includes otitis media, otitis externa, sinusitis. Symptoms are most consistent with sinusitis and will treat for this. Recommend continued [id number] supportive care with Flonase Mucinex and Claritin. Will also prescribe Augmentin. Recommend follow-up with PCP for reevaluation if symptoms are not improving. Quality:SDOH Health Related Social Needs: No Data to Display PFSH All Active Problems (Updated 07/09/24 @ 12:05 by Juvenal Ross MD) Sinusitis (Acute) GERD (gastroesophageal reflux disease) (Chronic) (Acute) Positive test (Acute) Medical History (Updated 07/09/24 @ 12:05 by Juvenal Ross MD) Asthma Dx age 14yrs rare episodes uses rescue inhaler PRN Attention deficit hyperactivity disorder Bacterial urinary infection Migraine with aura Dx age 13yrs recent validation with aura [facility] [place] Surgical History Tonsillectomy and adenoidectomy 08/11 for sleep apnea Family History Mother Urologic disease Hypertension Other Diabetes Hyperlipidemia Personal history of malignant neoplasm Social History Smoking/Tobacco Use Status: Former Tobacco Use Tobacco: How many years used: 1 Smoking risk assessment performed?: Yes Alcohol Intake: current Alcohol Intake frequency: a few times a month Alcohol type: beer Drug use: Never Substance use type: does not use Details: patient state she stopped smoking when she turned 24 years old Housing: apartment Do you feel safe at home: Yes Do you feel safe in your relationship?: Yes
== END 2024-07-09 12:16 | disposition home or self-care (01) ==
PROVIDERS: Emergency Provider Emergency Medicine; PCP Nurse Practitioner Family
DX: J32.9 Chronic sinusitis, unspecified (principal)
CPT/HCPCS: 99283 ×2

== ENCOUNTER 2025-01-23 19:56 | Emergency (ER) | payer MEDICAID, SELFPAY ==
[2025-01-23 19:58] VITALS: BP 177/83; PULSE 114; RESP 18; TEMP 36.6; O2SAT 100
--- NOTE | 2025-01-23 20:12 | ED.GENADUL_ITS ---
Discharge Plan Disposition Patient Disposition: Home Condition: Stable Discharge Details Clinical Impression: Cyst of left ovary, Nausea & vomiting Primary Care Provider: Eldon Moreno ED Provider: Madison Mccurdy Home Meds and New Rx's Prescriptions: No Action fluoxetine 10 mg tablet 20 mg DAILY Patient Comments: TAKE ONE TABLET BY MOUTH EVERY DAY, MAY INCREASE TO 2 TABLETS AFTER 14 DAYS IF NO SIDE EFFECTS hydroxyzine HCl 25 mg tablet 25 mg PRN Patient Comments: TAKE ONE TABLET BY MOUTH FOUR TIMES A DAY NEEDED FOR ANXIETY Discharge Instructions Instructions: Nausea and Vomiting, Adult ED, Ovarian Cyst ED Additional Instructions: CT shows a left ovarian cyst which may be the cause of your pain, usually this can be normal in some women. No evidence for obstruction or appendicitis. No urinary infection, test was negative at this time. Please take the nausea medication up to 3 times daily 20 to 30 minutes before eating or drinking anything. Clear liquids for the next 24 hours then advance slowly as tolerated with a bland diet. Nothing fried fatty spicy or dairy. Follow up with primary care provider in 3-5 days. Return to ED sooner if any worsening or concerns. Please take Tylenol or Ibuprofen with food every 4-6 hours as needed for pain and swelling. Stand Alone Forms: Portal Information Referrals: Eldon Moreno, M[facility]RIS [Primary Care Provider, Medicine] - 5 days Referral Note: ER follow-up, call for an appointment Clinical Impression: Nausea & vomiting; Cyst of left ovary HPI General Mode of arrival: ambulatory . Date/Time Provider Initiated Documentation: 01/23/25 20:05 . Limitations to Documentation: no limitations . Information obtained by: patient, RN notes reviewed and old records reviewed . HPI Narrative: 29-year-old female presents to the ER with a chief complaint of lower abdominal pain which began today around 230. She reports that she has had nausea vomiting for approximately 1 week. She is unsure about her status. She has not gotten her normal menstrual period this manage she reports that she is 3 days late. She states after dinner she began having nausea and vomiting and worsening lower abdominal cramping. Denies any vaginal discharge or bleeding or problems urinating. She has a past medical history of asthma and ADD and migraine. She is actively vomiting upon arrival. Related Data Home Medications Medication Instructions Recorded Confirmed fluoxetine 10 mg tablet 20 mg DAILY 01/23/25 hydroxyzine HCl 25 mg tablet 25 mg PRN 01/23/25 Allergies Allergy/AdvReac Type Severity Reaction Status Date / Time banana Allergy Severe Wheezing Verified 01/23/25 20:02 doxycycline Allergy Intermediate Hives Unverified 01/23/25 20:02 Sulfa (Sulfonamide Allergy Intermediate Hives Unverified 01/23/25 20:02 Antibiotics) lavender (Lavandula Allergy Mild Hives Unverified 01/23/25 20:02 angustifolia) General Stated Complaint: Abd Prob GARCIA: 3 Review of Systems All systems reviewed & are unremarkable except as noted in HPI and below Gastrointestinal Gastrointestinal: Reports abdominal pain, Reports nausea and Reports vomiting Exam Narrative Exam Narrative: Constitutional: Alert and oriented x3. Appears stated age. Normal body habitus. Head: Normocephalic, no trauma. Eyes: Pupils PERRL, Red reflex noted, EOM's intact. Eyelids symmetrical without lesions, discharge, or swelling. ENT: Bilateral TM's WNL, External ear normal to inspection, no mastoid TTP, swelling, or erythema, Nasal turbinates WNL, no nasal discharge. Normal dentition, Posterior pharynx WNL, no exudate. Chest: RRR, Normal S1, S2, distal pulses intact. Resp: Lungs clear to auscultation bilaterally, no wheezes, rales, or rhonchi. Abdomen: Soft, non-distended, Normoactive bowel sounds all 4 quads. Musculoskeletal: Normal gait, Moves all 4 extremities without difficulty. Skin: No suspicious rashes or lesions. Capillary refill less than 2 sec. Neurologic: Cranial nerves II-XII intact. Alert and oriented x 3. Motor: No deficits noted. Sensory: Intact bilaterally all 4 extremities. Hematologic/Lymphatic: No ecchymosis, no lymphadenopathy. Course Vital Signs Vital signs: Vital Signs Temperature 36.6 C 01/23/25 19:58 Pulse 114 H 01/23/25 19:58 Respiratory Rate 18 01/23/25 19:58 Blood Pressure 177/83 H 01/23/25 19:58 Pulse Oximetry 100 01/23/25 19:58 Temperature 36.6 C 01/23/25 19:58 Pulse 114 H 01/23/25 19:58 Respiratory Rate 18 01/23/25 19:58 Blood Pressure 177/83 H 01/23/25 19:58 Pulse Oximetry 100 11/19/25 19:58 Pain Level 7 01/23/25 19:58 Medical Decision Making 29-year-old female presents to the ER with a chief complaint of lower abdominal pain which began today around 230. She reports that she has had nausea vomiting for approximately 1 week. She is unsure about her status. She has not gotten her normal menstrual period this manage she reports that she is 3 days late. She states after dinner she began having nausea and vomiting and worsening lower abdominal cramping. Denies any vaginal discharge or bleeding or problems urinating. She has a past medical history of asthma and ADD and migraine. She is actively vomiting upon arrival. Workup ordered including CBC CMP lipase, urinalysis, urine test and hCG qualitative. Zofran 4 mg and a liter fluid given. Labs are unremarkable, mild leukocytosis with a white blood cell count of 13, CMP within normal limits lipase within normal limits. hCG qualitative negative urinalysis shows trace blood no evidence for urinary tract infection. Culture not indicated at this time. CT abdomen shows no evidence for appendicitis she does have a left ovarian cyst which could make a reason for her abdominal pain. Will discharge patient home with no Zofran instructed on fluids and follow-up with PCP. This text was generated using [email or web address] dictation system, please disregard any oddities of phrase or misspellings. Imaging Data Radiologic Study: Imaging: CT Scan Radiologist's impression: IMPRESSION: 1. No acute intra-abdominal findings. 2. Normal appendix. 3. Crenulated appearing left ovarian cyst which may be associated with recent follicular cyst rupture. Thank you for allowing us to participate in the care of your patient. Dictated and Authenticated by: Ashley Clay MD Lab Data Lab results reviewed: Yes I reviewed the patient's lab results. Labs: Laboratory Tests Range/Units 01/23/25 01/23/25 20:15 21:30 WBC (4.4-10.8) 10^3/uL 13.14 H RBC (3.93-5.22) 10^6/uL 4.63 Hgb (11.2-15.7) g/dL 13.1 Hct (36.0-46.0) % 40.4 MCV (80-95) fL 87 MCH (27.0-33.0) pg 28.3 MCHC (32.0-36.0) % 32.4 RDW (11.7-14.6) % 12.6 Plt Count (130-400) 10^3/uL 376 MPV (8.0-11.0) fL 10.7 Immature Gran % % 0.5 Neutrophils % % 65.8 Lymphocytes % % 25.6 Monocytes % % 7.5 Eosinophils % % 0.3 Basophils % % 0.3 Nucleated RBC % (0.0-0.3) % 0.0 Absolute Neutrophils (1.2-6.7) 10^3/uL 8.65 H Absolute Lymphocytes (1.2-3.4) 10^3/uL 3.36 Absolute Monocytes (0.1-0.8) 10^3/uL 0.99 H Absolute Eosinophils (0.0-0.7) 10^3/uL 0.04 Absolute Basophils (0.0-0.2) 10^3/uL 0.04 Sodium (136-145) mmol/L 142 Potassium (3.5-5.1) mmol/L 3.5 Chloride (98-107) mmol/L 103 Carbon Dioxide (20.0-31.0) mmol/L 29.4 Anion Gap (3-11) mmol/L 9.6 BUN (9-23) mg/dL 10 Creatinine (0.55-1.02) mg/dL 0.6 Est GFR (CKD-EPI 2020) (mL/min/1.73m2) 110.83 Glucose (74-106) mg/dL 77 Calcium (8.3-10.6) mg/dL 9.3 Magnesium (1.6-2.6) mg/dL 2.1 Total Bilirubin (0.2-1.2) mg/dL 0.20 AST (<34) U/L 19 ALT (10-49) U/L 21 Alkaline Phosphatase (46-116) U/L 104 Total Protein (5.7-8.2) g/dL 7.4 Albumin (3.4-5.0) g/dL 4.7 Lipase (<53) U/L 28 Serum HCG, Qual Negative Urine Color (Yellow) Yellow Urine Clarity (Clear) Clear Urine pH (5-8) 6.0 Ur Specific [place] (1.005-1.025) 1.020 Urine Protein (Neg-Trace) mg/dL Negative Urine Ketones (Negative) mg/dL Negative Urine Blood (Negative) Trace-intact H Urine Nitrite (Negative) Negative Urine Bilirubin (Negative) Negative Urine Urobilinogen (Up to 0.2) mg/dL 1.0 H Ur Leukocyte Esterase (Negative) Negative Urine RBC (0-2) HPF 0-2 Urine WBC (0-5) HPF Negative Ur Epithelial Cells (Negative) HPF Negative Urine Crystals (Negative) HPF Negative Urine Bacteria (Negative) HPF Negative Urine Casts (Negative) LPF Negative Urine Mucus (Negative) Negative Ur Culture Indicated? No Urine Glucose (Negative) mg/dL Negative PFSH All Active Problems (Updated 01/23/25 @ 22:28 by Madison Mccurdy NP) Nausea & vomiting (Acute) Cyst of left ovary (Acute) GERD (gastroesophageal reflux disease) (Chronic) (Acute) Positive test (Acute) Medical History (Updated 01/23/25 @ 22:28 by Madison Mccurdy NP) Asthma Dx age 14yrs rare episodes uses rescue inhaler PRN Attention deficit hyperactivity disorder Bacterial urinary infection Migraine with aura Dx age 13yrs recent validation with aura [facility] [place] Surgical History Tonsillectomy and adenoidectomy 08/11 for sleep apnea Family History Mother Urologic disease Hypertension Other Diabetes Hyperlipidemia Personal history of malignant neoplasm Social History Smoking/Tobacco Use Status: Former Tobacco Use Tobacco: How many years used: 1 Smoking risk assessment performed?: Yes Alcohol Intake: current Alcohol Intake frequency: a few times a month Alcohol type: beer Drug use: Never Substance use type: does not use Details: patient state she stopped smoking when she turned 24 years old Housing: apartment Do you feel safe at home: Yes Do you feel safe in your relationship?: Yes
[2025-01-23] MEDS: Normal Saline 1,000 ML 1000 ML IV (20:20)
[2025-01-23] MEDS: Ondansetron 4 MG/2 ML VIAL IVP (20:21)
[2025-01-23 20:23] LABS: Abs Immature Grans 0.07 10^3/uL (0.0-0.06); HCT 40.4 % (36.0-46.0); HGB 13.1 g/dL (11.2-15.7); Immature Grans % 0.5 %; MCH 28.3 pg (27.0-33.0); MCHC 32.4 % (32.0-36.0); MCV 87 fL (80-95); MPV 10.7 fL (8.0-11.0); Platelet Count 376 10^3/uL (130-400); RBC 4.63 10^6/uL (3.93-5.22); RDW 12.6 % (11.7-14.6); RDW-SD 40.4 fL; WBC 13.14 10^3/uL (4.4-10.8)
[2025-01-23 20:42] LABS: Lipase 28 U/L (<53); Magnesium 2.1 mg/dL (1.6-2.6)
[2025-01-23 20:44] LABS: ALT 21 U/L (10-49); AST 19 U/L (<34); Albumin 4.7 g/dL (3.4-5.0); Alkaline Phosphatase 104 U/L (46-116); Anion Gap 9.6 mmol/L (3-11); BUN 10 mg/dL (9-23); Bilirubin, Total 0.20 mg/dL (0.2-1.2); CO2 29.4 mmol/L (20.0-31.0); Calcium 9.3 mg/dL (8.3-10.6); Chloride 103 mmol/L (98-107); Glucose 77 mg/dL (74-106); Potassium 3.5 mmol/L (3.5-5.1); Sodium 142 mmol/L (136-145); Total Protein 7.4 g/dL (5.7-8.2)
[2025-01-23 20:59] LABS: HCG Qual (Serum) Negative
--- NOTE | 2025-01-23 21:37 | DI.CT_ITS ---
Exam(s) CT ABDOMEN PELVIS W EXAM: CT ABDOMEN PELVIS W CLINICAL HISTORY: Lower abd pain, Vomiting. TECHNIQUE: Imaging Protocol: Axial computed tomography images with coronal and sagittal reformatted images were created and reviewed CONTRAST MATERIAL: Intravenous: Omnipaque 350 Contrast volume:100 ml Oral: no COMPARISON: No exams were available for comparison FINDINGS: ABDOMEN and PELVIS: Lung Bases: No acute findings. Liver: Mildly enlarged. Mild hepatic steatosis. No suspicious mass. Gallbladder and biliary tract: No radiodense calculus. No wall thickening or pericholecystic fluid. No biliary dilation. Pancreas: Normal density. No abnormal calcifications or inflammatory process. No evidence of mass. Spleen: Normal. Kidneys: Normal size, contour and axis. No radiodense stones. No obstructive uropathy. No suspicious masses seen. Adrenal glands: No masses seen. Vasculature: Abdominal aorta non-dilated. Soft tissues: Unremarkable. Bladder: No gross wall thickening. No calculi.No focal mass. Bowel: No obstruction. No bowel wall thickening. Appendix normal. Peritoneal cavity: No ascites. No focal collection. No mesenteric inflammatory response. No free air. Bones: Unremarkable for age. Reproductive organs: Unremarkable. Involuting left ovarian follicle. Lymph nodes: No pathologically enlarged lymph nodes. IMPRESSION:: No acute abnormality in the abdomen or pelvis. The preliminary [facility] report was reviewed. RADIATION DOSE DELIVERED: 1,689.79mGy.cm Total DLP DATA REPOSITORY: All CT scans at this facility are submitted to the National Radiology Data Registry (NRDR) Dose Index Registry (DIR) with the [employer] (ACR). RADIATION OPTIMIZATION: All CT scans at this facility use at least one of these dose optimization techniques: automated exposure control; mA and/or kV adjustment per patient size (includes targeted exams where dose is matched to clinical indication); or iterative reconstruction.
[2025-01-23] MEDS: Normal Saline - Diluent 50 ML VIAL IJ (21:52)
[2025-01-23] MEDS: Normal Saline Flush 10 ML SYR IVP (21:52)
[2025-01-23] MEDS: ACETAMINOPHEN 1,000 MG/100 ML BAG 400 MG IVPB (21:53)
[2025-01-23] MEDS: Omnipaque 350 MG/ML 100 ML BTL IJ (21:54)
[2025-01-23 22:00] LABS: Glucose Negative (Negative)
[2025-01-23 22:02] LABS: C & S Indicated? No; RBC 0-2 HPF (0-2); WBC Negative HPF (0-5)
--- NOTE | 2025-01-23 22:21 | DI.[facility]_ITS ---
PROCEDURE INFORMATION: Exam: CT Abdomen And Pelvis With Contrast Exam date and time: 01/23/2025 9:47 PM Age: 29 years old Clinical indication: Other: Lower abd pain, vomiting TECHNIQUE: Imaging protocol: Computed tomography of the abdomen and pelvis with contrast. Contrast material: OMNIPAQUE 350; Contrast volume: 100 ml; Contrast route: INTRAVENOUS (IV); COMPARISON: CR XR PORTABLE CHEST AP 07/11/2022 1:42 PM FINDINGS: Lungs: Lung bases are clear. Liver: The liver has a normal appearance. Gallbladder and biliary ducts: The gallbladder is unremarkable. No biliary ductal dilatation. Pancreas: The pancreas demonstrates normal size. No pancreatic ductal dilatation. Spleen: The spleen demonstrates normal size. Adrenal glands: The adrenal glands have a normal appearance. Kidneys and ureters: The kidneys are normal in size. No hydronephrosis. No hydroureter or ureterolithiasis. Stomach and bowel: The bowel demonstrates overall normal caliber and wall thickness. Appendix: The appendix is thin walled. Intraperitoneal space: Unremarkable. No free air. No significant fluid collection. Vasculature: The IVC and aorta have a normal appearance. Lymph nodes: No enlarged lymph nodes. Urinary bladder: The bladder is thin walled and fluid filled. Reproductive: A crenulated appearing cyst is present within the left ovary. The uterus has a normal appearance. Bones/joints: Bones have a normal appearance. No acute fracture or suspicious bone lesion. Soft tissues: Unremarkable. IMPRESSION: 1. No acute intra-abdominal findings. 2. Normal appendix. 3. Crenulated appearing left ovarian cyst which may be associated with recent follicular cyst rupture. Dictated and Authenticated by: Ashley Clay MD. Orderin Kaz Wallace MD
[2025-01-23 22:33] VITALS: BP 130/67; PULSE 83; RESP 15; O2SAT 100
[2025-01-23] MEDS: Ondansetron O.D.T. 4 MG TABEF, 3 TABS/BTL PO (22:42)
[2025-01-23 22:43] VITALS: BP 130/67; PULSE 83; RESP 15; O2SAT 100
== END 2025-01-23 22:44 | disposition home or self-care (01) ==
PROVIDERS: Emergency Provider Registered Nurse Emergency
DX: N83.202 Unspecified ovarian cyst, left side (principal); R11.2 Nausea with vomiting, unspecified; Z87.891 Personal history of nicotine dependence
CPT/HCPCS: 80053; 83690; 96361; 96374; 96375; 99285; 74177; 81003; 81015; 83735; 84703; 85025; J0131; J2405; J3490

== ENCOUNTER 2025-01-28 13:44 | Outpatient (REF) | payer MEDICAID, SELFPAY | END 2025-01-28 13:45 | disposition home or self-care (01) | LOC: LBN 13:44 | PROVIDERS: Visit Provider Obstetrics & Gynecology | DX: R10.22 Pelvic and perineal pain left side (principal) | CPT/HCPCS: 87086 ==

== ENCOUNTER 2025-02-14 21:59 | Emergency (ER) | payer MEDICAID, SELFPAY ==
[2025-02-14 22:07] VITALS: BP 123/84; PULSE 94; RESP 18; TEMP 36.6; O2SAT 97
--- NOTE | 2025-02-14 22:09 | W.ED.GENAD ---
Discharge Plan Disposition Patient Disposition: Home Condition: Good Discharge Details Clinical Impression: Viral illness Primary Care Provider: Eldon Moreno ED Provider: Gordy Ramsey [place] Meds and New Rx's Prescriptions: New ondansetron 4 mg tablet,disintegrating 4 mg PO Q8H PRN (Reason: nausea and vomiting) Qty: 10 0RF Continued fluoxetine 10 mg tablet 20 mg PO DAILY Patient Comments: TAKE ONE TABLET BY MOUTH EVERY DAY, MAY INCREASE TO 2 TABLETS AFTER 14 DAYS IF NO SIDE EFFECTS hydroxyzine HCl 25 mg tablet 25 mg PO ONCE PRN Patient Comments: TAKE ONE TABLET BY MOUTH FOUR TIMES A DAY NEEDED FOR ANXIETY Discharge Instructions Additional Instructions: You were seen in the ED for URI symptoms with associated vomiting and diarrhea. 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 Rest and hydrate. A prescription for ondansetron to help with recurrent nausea has been sent to pharmacy. You may take acetaminophen or ibuprofen as needed for fever. Follow-up with primary care next week if you are not improving. Return to ED for persistent vomiting, difficulty breathing, chest pain, abdominal pain, other concerns. Stand Alone Forms: Portal Information, Work Release HPI General Mode of arrival: ambulatory. Date/Time Provider Initiated Documentation: 02/14/25 22:09. Limitations to Documentation: no limitations. Information obtained by: patient and RN notes reviewed. HPI Narrative: Patient presents to ED with nausea and vomiting. Patient began having nasal congestion, bilateral ear pain, cough 2 days ago. Today at work developed nausea, vomiting and diarrhea. Went home from work and was going to go to urgent care but fell asleep. Woke up still feeling very nauseated. She does report having a fever today. She denies any chest pain, shortness of breath, abdominal pain. She works at a [employer]. Related Data Home Medications ?Medication ?Instructions ?Recorded ?Confirmed fluoxetine 10 mg tablet 20 mg PO DAILY 01/23/25 02/14/25 hydroxyzine HCl 25 mg tablet 25 mg PO ONCE PRN 01/23/25 02/14/25 ondansetron 4 mg disintegrating 4 mg PO Q8H PRN nausea and 02/14/25 tablet vomiting #10 tabs Previous Rx's ?Medication ?Instructions ?Recorded ondansetron 4 mg disintegrating 4 mg PO Q8H PRN nausea and 02/14/25 tablet vomiting #10 tabs Allergies Allergy/AdvReac Type Severity Reaction Status Date / Time banana Allergy Severe Wheezing Verified 02/14/25 22:10 doxycycline Allergy Intermediate Hives Unverified 02/14/25 22:10 Sulfa (Sulfonamide Allergy Intermediate Hives Unverified 02/14/25 22:10 Antibiotics) lavender (Lavandula Allergy Mild Hives Unverified 02/14/25 22:10 angustifolia) General Stated Complaint: Nausea/Vomit/Diar GARCIA: 3 Exam Narrative Exam Narrative: Const: Obese female in NAD. VS per triage. HEENT: NC/AT. Normal facial exam. TMs clear bilaterally. OP clear. Neck: Supple. Trachea midline. Lungs: Normal respiratory effort. Lungs are clear. Cor: RRR without murmur. Good radial pulses. GI: Soft/ND/NT. Neuro: A+O x 3. Normal speech, mentation, gait. Cranial nerves II - XII grossly intact. No gross motor or sensory deficit. Course Vital Signs Vital signs: Vital Signs Temperature 97.9 F 02/14/25 22:07 Pulse 94 H 02/14/25 22:07 Respiratory Rate 18 02/14/25 22:07 Blood Pressure 123/84 02/14/25 22:07 Pulse Oximetry 97 02/14/25 22:07 Temperature 97.9 F 02/14/25 22:07 Temperature Source Oral 02/14/25 22:07 Pulse 94 H 02/14/25 22:07 Respiratory Rate 18 02/14/25 22:07 Blood Pressure 123/84 02/14/25 22:07 Pulse Oximetry 97 02/14/25 22:07 Oxygen Delivery Method Room Air 02/14/25 22:07 Oxygen Flow Rate 0 02/14/25 22:07 Pain Level 6 02/14/25 22:07 Medical Decision Making Patient presenting to ED with URI type symptoms that began 2 days ago now with vomiting and diarrhea as well as fever. Denies any shortness of breath, chest pain, abdominal pain. Exam is reassuring. She is afebrile here with normal saturations. Lungs are clear. 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 I do not believe she requires chest x-ray at this time as her lungs are clear, no chest pain or shortness of breath. Will dose with ondansetron ODT to help with the nausea. Ondansetron resolved patient's nausea. Fluvid is negative. 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 Prescription for ondansetron will be sent to pharmacy. Patient to rest and hydrate over the next few days. May use acetaminophen or ibuprofen as needed. Follow-up with primary care next week if not improved. Return precautions provided. Lab Data Lab results reviewed: Yes I reviewed the patient's lab results. PFSH All Active Problems (Updated 02/14/25 @ 23:28 by Gordy Ramsey MD) Viral illness (Acute) Medical History GERD (gastroesophageal reflux disease) Asthma Dx age 14yrs rare episodes uses rescue inhaler PRN Attention deficit hyperactivity disorder Migraine with aura Dx age 13yrs [place] [facility] [place] Tonsillectomy and adenoidectomy 08/11 for sleep apnea Family History Mother Urologic disease Hypertension Other Diabetes Hyperlipidemia Personal history of malignant neoplasm Social History Smoking/Tobacco Use Status: Former Tobacco Use Tobacco: How many years used: 1 Smoking risk assessment performed?: Yes Alcohol Intake: current Alcohol Intake frequency: a few times a month Alcohol type: beer Drug use: Never Substance use type: does not use Details: patient state she stopped smoking when she turned 24 years old Housing: apartment Do you feel safe at home: Yes Do you feel safe in your relationship?: Yes History History 3 Para 1 Hx # Term Pregnancies Multiple births Hx # Pregnancies 1 Ectopic pregnancies AB induced 1 Hx Number of Living Children 1 AB spontaneous 1 Past Pregnancies Del. Date GA/Weeks # Preg Succ Route Wgt Sex Labor Lgth Anesthesia Location Prov Complic 01/06/22 31 No Yes vaginal 1559.224 g [place] [facility] [place]: 01/06/22 Last Updated by: MD Kelly Avilez ctxs/?placental issues from 20wks. DVT a few days prior to delivery while on bedrest with epidural -> course of lovenox
[2025-02-14] MEDS: Ondansetron O.D.T. 4 MG TABEF PO (22:25)
[2025-02-14 23:15] VITALS: RESP 20
[2025-02-14 23:16] LABS: COVID-19 PCR Negative (Negative); RSV PCR Negative (Negative)
== END 2025-02-14 23:58 | disposition home or self-care (01) ==
PROVIDERS: Emergency Provider Emergency Medicine
DX: R11.2 Nausea with vomiting, unspecified; B34.9 Viral infection, unspecified; R19.7 Diarrhea, unspecified
CPT/HCPCS: 99283 ×2; 87637